=== PATIENT | female | born 1960 | race Caucasian/White ===

== ENCOUNTER 2016-12-08 09:21 | Inpatient (IN) | payer MEDICARE ==
[~2016-12-08] VITALS: Ht 160 cm; Wt 71.4 kg
[~2016-12-08 09:21] MED LIST: AMLO5TAB4 PO; ASPI-630 PO; ATOR20TA58 PO; CALC1TAB75 PO; CHANTIX; CLON1TAB3 PO; CLOP75TA57 PO; CYCL10TA2 PO; HYDR4TAB45 PO; HYDR8TAB29 PO; ISOS30TA4 PO; KETO5DRO24 LEFTEYE; METF750T2 PO; METO-239 PO; MORP30TA PO; MORP30TA3 PO; MULT1TAB52 PO; NITR0.4T22 PO; NORT50CA PO; PANT40TA5 PO; Polyethylene Glycol 3350 PO; RANI150T6 PO; SIMV40TA3 PO
[2016-12-08] MEDS ORDERED: IV NORMAL SALINE 1000ML BAG 1,000 ML IV ONE ×3 (10:00→13:45)
[2016-12-08] MEDS ORDERED: ONDANSETRON PF 4 MG/2 ML VIAL. IV ONE (10:00)
[2016-12-08 10:22] LABS: BASO % 0 % (0-3); EOS % 0 % (0-3); HEMATOCRIT 38.7 % (36.0-47.0); LYMPH # 1.4 x10^3/uL (1.0-4.8); LYMPH % 10 % (24-48); MEAN CORPUSCULAR HEMOGLOBIN 32 pg (25-35); MEAN CORPUSCULAR HGB CONC 34 g/dL (31-37); MEAN CORPUSCULAR VOLUME 95 fL (79-100); MONO % 2 % (0-9); NEUT % 88 % (31-73); PLATELET COUNT 420 x10^3/uL (140-400); RED BLOOD COUNT 4.06 x10^6/uL (3.50-5.40); RED CELL DISTRIBUTION WIDTH 16.3 % (11.5-14.5); WHITE BLOOD COUNT 14.5 x10^3/uL (4.0-11.0)
[2016-12-08 10:22] LABS: POTASSIUM ISTAT 3.9 mmol/L (3.5-5.0)
--- NOTE | 2016-12-08 10:33 | PHYS DOC ---
Past Medical History Past Medical History: Angina, CAD, Diabetes-Type II, GERD, High Cholesterol, Hypertension, Hepatitis, HI Additional Past Medical Histor: replasing poly chondritis, Hepitits B Past Surgical History: Appendectomy, Cholecystectomy Additional Past Surgical Histo: RT ARM SURGERY,spinal stimulator placement, back surgery, stent Alcohol Use: None Drug Use: None Adult General Chief Complaint Chief Complaint: CONSTIPATION HPI HPI Patient is a 56 year old female who presents with several weeks of nausea, intermittent vomiting with intermittent abdominal pain. Patient states his symptoms started shortly after she had an upper and lower GI endoscopy. The pain does not relieve with bowel movements, she chronically has constipation that requires mag citrate intermittently. She did take this during this timeframe and this did not resolve her symptoms. She denies any known fevers, is trying to drink any fluids. She's had a cholecystectomy and appendectomy in the past. Patient has relapsing polychondritis and seen at . PCP is Dr. Lopez, whose office recommended pt come to ED for evaluation and CT. Review of Systems Review of Systems Constitutional: Denies fever or chills [] Eyes: Denies change in visual acuity, redness, or eye pain [] HENT: Denies nasal congestion or sore throat [] Respiratory: reports cough denies shortness of breath [] Cardiovascular: Denies chest pain GI: per hpi : Denies dysuria or hematuria [] Musculoskeletal: Denies back pain or joint pain [] Integument: Denies rash or skin lesions [] Neurologic: Denies headache, focal weakness or sensory changes [] Current Medications Current Medications Current Medications Medications (Trade) Dose Ordered Sig/Anthony Start Time Stop Time Status Last Admin Dose Admin Ceftriaxone Sodium 50 ml @ 100 mls/hr 1X ONCE 12/08/16 12:15 12/08/16 12:44 DC 12/08/16 12:30 100 MLS/HR Info (Do NOT chart on this entry -- for MONITORING) 1 each PRN DAILY PRN 12/08/16 10:45 12/10/16 10:44 Iohexol (Omnipaque 300 Mg/ml) 75 ml 1X ONCE 12/08/16 10:45 12/08/16 10:46 DC 12/08/16 10:40 75 ML Magnesium Citrate (Citroma) 296 ml 1X ONCE 12/08/16 12:15 12/08/16 12:16 DC 12/08/16 12:27 296 ML Morphine Sulfate 4 mg PRN Q2HR PRN 12/08/16 12:45 12/09/16 12:44 Ondansetron HCl (Zofran) 4 mg 1X ONCE 12/08/16 10:00 12/08/16 10:01 DC 12/08/16 10:04 4 MG Promethazine HCl 12.5 mg/Sodium Chloride 50.5 ml @ 151.5 mls/ hr 1X ONCE 12/08/16 12:15 12/08/16 12:34 DC 12/08/16 12:28 151.5 MLS/HR Sodium Chloride 1,000 ml @ 1,000 mls/hr 1X ONCE 12/08/16 13:45 12/08/16 14:44 DC 12/08/16 14:20 1,000 MLS/HR Allergies Allergies Allergies Coded Allergies Type Severity Reaction Last Updated Verified No Known Drug Allergies 06/22/13 No Physical Exam Physical Exam Constitutional: Well developed, well nourished, no acute distress, non-toxic appearance. [] HENT: Normocephalic, atraumatic, bilateral external ears normal, oropharynx dry , no oral exudates, nose normal. [] Eyes: PERRLA, EOMI, conjunctiva normal, no discharge. [] Neck: Normal range of motion, no tenderness, supple, no stridor. [] Cardiovascular:Heart rate tachy with regular rhythm, no murmur [] Lungs & Thorax: Bilateral breath sounds clear to auscultation, no wheeze or crackles Abdomen: Bowel sounds normal, soft, slightly distended, no focal tenderness or guarding. Skin: Warm, dry, no erythema, no rash. [] Back: No tenderness, no CVA tenderness. [] Extremities: No tenderness, no cyanosis, no clubbing, ROM intact, no edema. [] Neurologic: Alert and oriented X 3, normal motor function, normal sensory function, no focal deficits noted. [] Psychologic: Affect normal, judgement normal, mood normal. [] Current Patient Data Vital Signs Vital Signs Date Time Temp Pulse Resp B/P (MAP) Pulse Ox O2 Delivery O2 Flow Rate FiO2 12/08/16 13:39 117 20 154/83 (106) 96 Room Air 12/08/16 09:36 97.7 97.7 Lab Values Laboratory Tests Test 12/08/16 10:01 12/08/16 10:18 12/08/16 12:25 12/08/16 14:10 White Blood Count 14.5 x10^3/uL (4.0-11.0) H Red Blood Count 4.06 x10^6/uL (3.50-5.40) Hemoglobin 13.0 g/dL (12.0-15.5) Hematocrit 38.7 % (36.0-47.0) Mean Corpuscular Volume 95 fL (79-100) Mean Corpuscular Hemoglobin 32 pg (25-35) Mean Corpuscular Hemoglobin Concent 34 g/dL (31-37) Red Cell Distribution Width 16.3 % (11.5-14.5) H Platelet Count 420 x10^3/uL (140-400) H Neutrophils (%) (Auto) 88 % (31-73) H Lymphocytes (%) (Auto) 10 % (24-48) L Monocytes (%) (Auto) 2 % (0-9) Eosinophils (%) (Auto) 0 % (0-3) Basophils (%) (Auto) 0 % (0-3) Neutrophils # (Auto) 12.8 x10^3uL (1.8-7.7) H Lymphocytes # (Auto) 1.4 x10^3/uL (1.0-4.8) Monocytes # (Auto) 0.3 x10^3/uL (0.0-1.1) Eosinophils # (Auto) 0.0 x10^3/uL (0.0-0.7) Basophils # (Auto) 0.0 x10^3/uL (0.0-0.2) Segmented Neutrophils % 87 % (35-66) H Band Neutrophils % 2 % (0-9) Lymphocytes % 10 % (24-48) L Monocytes % 1 % (0-10) Platelet Estimate Adequate (ADEQUATE) Lactic Acid Level 2.5 mmol/L (0.4-2.0) H 1.5 mmol/L (0.4-2.0) Total Bilirubin 0.3 mg/dL (0.2-1.0) Direct Bilirubin 0.1 mg/dL (0.0-0.2) Aspartate Amino Transferase (AST) 12 U/L (15-37) L Alanine Aminotransferase (ALT) 16 U/L (14-59) Alkaline Phosphatase 102 U/L (46-116) Total Protein 7.1 g/dL (6.4-8.2) Albumin 3.2 g/dL (3.4-5.0) L Lipase 79 U/L (73-393) POC Hemoglobin 13.6 g/dL (12-15) POC Hematocrit 40 % (36-40) POC Sodium 131 mmol/L (135-145) L POC Potassium 3.9 mmol/L (3.5-5.0) POC Chloride 97 mmol/L (98-110) L POC Total CO2 23 mmol/L (23-32) Anion Gap 15 mmol/L (6-14) H POC Blood Urea Nitrogen 8 mg/dL (8-26) POC Creatinine 0.8 mg/dL (0.5-1.4) Glucose Level 141 mg/dL (70-99) H POC Ionized Calcium (Mellissa) 1.16 mmol/L (1.13-1.32) Urine Collection Type Unknown Urine Color Yellow Urine Clarity Clear Urine pH 6.5 Urine Specific [place] 1.020 Urine Protein Negative mg/dL (NEG-TRACE) Urine Glucose (UA) Negative mg/dL (NEG) Urine Ketones (Stick) Negative mg/dL (NEG) Urine Blood Negative (NEG) Urine Nitrite Negative (NEG) Urine Bilirubin Negative (NEG) Urine Urobilinogen Dipstick 0.2 mg/dL (0.2 mg/dL) Urine Leukocyte Esterase Negative (NEG) Urine RBC Occ /HPF (0-2) Urine WBC 0 /HPF (0-4) Urine Squamous Epithelial Cells Occ /LPF Urine Bacteria 0 /HPF (0-FEW) Laboratory Tests 12/08/16 10:01 Laboratory Tests 12/08/16 10:18 EKG EKG [] Radiology/Procedures Radiology/Procedures CT abd pelvis: Impression: 1. Moderate amount of stool identified throughout the colon. Correlate for constipation. 2. Cholecystectomy changes. CXR: IMPRESSION: No acute cardiopulmonary findings. Course & Med Decision Making Course & Med Decision Making Pertinent Labs and Imaging studies reviewed. (See chart for details) pt given IV fluids, zofran. Labs/ua/lactic acid ordered as pt is tachy. HR improved, leukocytosis with shift and lactic acidosis. Pt received IV rocephin for possible UTI vs intrabdominal , urine pending. Discussed with Dr. Lopez, accepted. Consult placed for GI. IV fluids continued. Repeat lactic ordered. Dragon Disclaimer Dragon Disclaimer This electronic medical record was generated, in whole or in part, using a voice recognition dictation system. Departure Departure Impression: Primary Impression: Abdominal pain Additional Impression: Lactic acid acidosis Disposition: ADMITTED INPATIENT Admitting Physician: Brynn Lopez Referrals: BRYNN LOPEZ MD (PCP) Problem Qualifiers JAKOB VICTORIA MD Dec 08, 2016 10:33
[2016-12-08 10:40] LABS: ALBUMIN 3.2 g/dL (3.4-5.0); DIRECT BILIRUBIN 0.1 mg/dL (0.0-0.2); TOTAL BILIRUBIN 0.3 mg/dL (0.2-1.0); TOTAL PROTEIN 7.1 g/dL (6.4-8.2)
[2016-12-08] MEDS ORDERED: CONTRAST GIVEN MC PRN (10:45)
[2016-12-08] MEDS ORDERED: IOHEXOL 300 MG/ML 75 ML VIAL IV ONE (10:45)
--- NOTE | 2016-12-08 10:50 | RAD ---
EXAM: CHEST 1 VIEW History: Cough, constipation COMPARISON: 06/24/2016 TECHNIQUE: Single portable radiograph of the chest FINDINGS: The cardiac silhouette is unremarkable. Small calcified granuloma identified in the right lower lobe with lungs grossly similar to prior exam. The costophrenic sulci are clear and well demarcated. The osseous structures and soft tissues are unremarkable. IMPRESSION: No acute cardiopulmonary findings.
--- NOTE | 2016-12-08 11:11 | RAD ---
Examination: CT of the abdomen pelvis with IV contrast History: History of abdominal pain, nausea, vomiting after endoscopy Comparison: 06/22/2013 Technique: Axial CT images of the abdomen pelvis were performed with IV contrast. Coronal and sagittal reformats are performed. PQRS Compliance Statement: One or more of the following individualized dose reduction techniques were utilized for this examination: 1. Automated exposure control 2. Adjustment of the mA and/or kV according to patient size 3. Use of iterative reconstruction technique Findings: Minimal bibasal lung atelectasis. No evidence of free air identified in the abdomen. The visualized liver, spleen, adrenals grossly appears unremarkable. The stomach is mildly distended. The small bowel is nondilated. Moderate fatty atrophic changes of the pancreas increased since prior exam. Moderate amount of feces and gas are noted throughout the colon. Urinary bladder is mildly distended. No significant free fluid identified in the pelvis. The visualized uterus, adnexa grossly appears unremarkable. The bilateral kidneys enhance symmetrically. Severe aortic atherosclerosis, Moderate degenerative changes lumbar spine. Retroaortic left renal vein. Impression: 1. Moderate amount of stool identified throughout the colon. Correlate for constipation. 2. Cholecystectomy changes.
[2016-12-08 11:49] LABS: PLT ESTIMATE ADEQUATE (ADEQUATE)
[2016-12-08] MEDS ORDERED: MAGNESIUM CITRATE 296 ML SOLUTION. PO ONE (12:15)
[2016-12-08] MEDS ORDERED: PROMETHAZINE 12.5 MG in IV NORMAL SALINE 50ML 50 ML IV ONE (12:15)
[2016-12-08] MEDS ORDERED: MORPHINE SULFATE 4 MG/ML DISP.SYRIN. IV ONE (12:15)
[2016-12-08 12:37] LABS: BILIRUBIN,URINE NEGATIVE (NEG); GLUCOSE,URINE NEGATIVE (NEG); NITRITE,URINE NEGATIVE (NEG); PH,URINE 6.5; PROTEIN,URINE NEGATIVE (NEG-TRACE); UROBILINOGEN,URINE 0.2 mg/dL (0.2 mg/dL)
[2016-12-08 13:03] LABS: BACTERIA,URINE 0 /HPF (0-FEW); RBC,URINE OCC /HPF (0-2); SQUAMOUS EPITHELIAL CELL,UR OCC /LPF; WBC,URINE 0 /HPF (0-4)
--- NOTE | 2016-12-08 15:35 | PDOC2 ---
GI CONSULT Reason For Consult: Abd pain HPI: HPI: 56 y/o female with PMH as below including chronic GI issues including constipation and GERD. Has been bothered w/ worsening constipation, nausea, and decreased appetite x 5 weeks w/ estimated 13 pound weight loss. She underwent EGD and colonoscopy at on 11/06/16; she says these were performed due to her h/o relapsing polychondritis. She reports findings including hemorrhoids and a normal esophageal biopsy. It was after this that symptoms began. She has been on methotrexate for relapsing polychondritis; this was stopped for a brief time as a trial but nausea and appetite did not improve. For GERD, she was previously on pantoprazole but recently changed to ranitidine 300mg QD which she feels controls nocturnal reflux and chest pain (her typical GERD symptoms) better than PPI. Diet has mostly consisted of crackers and Boost. Since colonoscopy, she has had only 2-3 stools despite Miralax QD + Mag Citrate x 1. She does have a h/o constipation attributed in part to use of pain medications. She has chronic "head to toe" pain since an accident in 2001 and take morphine ER TID + Tylenol PRN. No NSAIDs although does take ASA and Plavix. H/o Hep B, cholecystectomy, and appendectomy. No hematochezia or melena. Significant labs: WBC 14.5, plt 420, Na 131, lactic acid 2.5, normal LFTs and lipase. CT A/P showed a moderate amount of stool. PMH: PMH: GERD, Hepatitis B, constipation, hemorrhoids, chronic pain, CAD s/p 4 stents and previous NM, DM, HTN, HLD, restless leg syndrome, relapsing polychondritis, spinal stimulator. cholecystectomy, appendectomy, right rotator cuff repair FH: Family History: No pertinent hx Social History: Smoke: <1 pack per day ALCOHOL: none Drugs: Marijuana ROS: GEN: Denies fevers, chills, sweats HEENT: Denies blurred vision, sore throat CV: Denies chest pain RESP: Denies shortness of air, cough GI: Per HPI : Denies hematuria, dysuria ENDO: +weight loss NEURO: Denies confusion, dizziness MSK: +chronic "head to toe" pain SKIN: Denies jaundice, pruritus Vitals: Vitals: Vital Signs Date Time Temp Pulse Resp B/P (MAP) Pulse Ox O2 Delivery O2 Flow Rate FiO2 12/08/16 13:39 117 20 154/83 (106) 96 Room Air 12/08/16 09:36 97.7 97.7 Labs: Labs: Laboratory Tests Test 12/08/16 10:01 12/08/16 10:18 12/08/16 12:25 12/08/16 14:10 White Blood Count 14.5 x10^3/uL (4.0-11.0) Red Blood Count 4.06 x10^6/uL (3.50-5.40) Hemoglobin 13.0 g/dL (12.0-15.5) Hematocrit 38.7 % (36.0-47.0) Mean Corpuscular Volume 95 fL (79-100) Mean Corpuscular Hemoglobin 32 pg (25-35) Mean Corpuscular Hemoglobin Concent 34 g/dL (31-37) Red Cell Distribution Width 16.3 % (11.5-14.5) Platelet Count 420 x10^3/uL (140-400) Neutrophils (%) (Auto) 88 % (31-73) Lymphocytes (%) (Auto) 10 % (24-48) Monocytes (%) (Auto) 2 % (0-9) Eosinophils (%) (Auto) 0 % (0-3) Basophils (%) (Auto) 0 % (0-3) Neutrophils # (Auto) 12.8 x10^3uL (1.8-7.7) Lymphocytes # (Auto) 1.4 x10^3/uL (1.0-4.8) Monocytes # (Auto) 0.3 x10^3/uL (0.0-1.1) Eosinophils # (Auto) 0.0 x10^3/uL (0.0-0.7) Basophils # (Auto) 0.0 x10^3/uL (0.0-0.2) Segmented Neutrophils % 87 % (35-66) Band Neutrophils % 2 % (0-9) Lymphocytes % 10 % (24-48) Monocytes % 1 % (0-10) Platelet Estimate Adequate (ADEQUATE) Lactic Acid Level 2.5 mmol/L (0.4-2.0) 1.5 mmol/L (0.4-2.0) Total Bilirubin 0.3 mg/dL (0.2-1.0) Direct Bilirubin 0.1 mg/dL (0.0-0.2) Aspartate Amino Transf (AST/SGOT) 12 U/L (15-37) Alanine Aminotransferase (ALT/SGPT) 16 U/L (14-59) Alkaline Phosphatase 102 U/L (46-116) Total Protein 7.1 g/dL (6.4-8.2) Albumin 3.2 g/dL (3.4-5.0) Lipase 79 U/L (73-393) Bedside Hemoglobin 13.6 g/dL (12-15) Bedside Hematocrit 40 % (36-40) Bedside Sodium 131 mmol/L (135-145) Bedside Potassium 3.9 mmol/L (3.5-5.0) Bedside Chloride 97 mmol/L (98-110) Bedside Total CO2 23 mmol/L (23-32) Anion Gap 15 mmol/L (6-14) Bedside Blood Urea Nitrogen 8 mg/dL (8-26) Bedside Creatinine 0.8 mg/dL (0.5-1.4) Glucose Level 141 mg/dL (70-99) Bedside Ionized Calcium (Mellissa) 1.16 mmol/L (1.13-1.32) Urine Collection Type Unknown Urine Color Yellow Urine Clarity Clear Urine pH 6.5 Urine Specific [place] 1.020 Urine Protein Negative mg/dL (NEG-TRACE) Urine Glucose (UA) Negative mg/dL (NEG) Urine Ketones (Stick) Negative mg/dL (NEG) Urine Blood Negative (NEG) Urine Nitrite Negative (NEG) Urine Bilirubin Negative (NEG) Urine Urobilinogen Dipstick 0.2 mg/dL (0.2 mg/dL) Urine Leukocyte Esterase Negative (NEG) Urine RBC Occ /HPF (0-2) Urine WBC 0 /HPF (0-4) Urine Squamous Epithelial Cells Occ /LPF Urine Bacteria 0 /HPF (0-FEW) Allergies: Coded Allergies: No Known Drug Allergies (Unverified , 06/22/13) Medications: Current Medications Medications (Trade) Dose Ordered Sig/Anthony Route PRN Reason Start Time Stop Time Status Last Admin Dose Admin Sodium Chloride 1,000 ml @ 1,000 mls/hr 1X ONCE IV 12/08/16 10:00 12/08/16 10:59 DC 12/08/16 10:04 Ondansetron HCl (Zofran) 4 mg 1X ONCE IV 12/08/16 10:00 12/08/16 10:01 DC 12/08/16 10:04 Iohexol (Omnipaque 300 Mg/ml) 75 ml 1X ONCE IV 12/08/16 10:45 12/08/16 10:46 DC 12/08/16 10:40 Sodium Chloride 1,000 ml @ 1,000 mls/hr 1X ONCE IV 12/08/16 11:45 12/08/16 12:44 DC 12/08/16 12:23 Ceftriaxone Sodium 50 ml @ 100 mls/hr 1X ONCE IV 12/08/16 12:15 12/08/16 12:44 DC 12/08/16 12:30 Morphine Sulfate 4 mg 1X ONCE IV 12/08/16 12:15 12/08/16 12:16 DC 12/08/16 12:33 Promethazine HCl 12.5 mg/Sodium Chloride 50.5 ml @ 151.5 mls/ hr 1X ONCE IV 12/08/16 12:15 12/08/16 12:34 DC 12/08/16 12:28 Magnesium Citrate (Citroma) 296 ml 1X ONCE PO 12/08/16 12:15 12/08/16 12:16 DC 12/08/16 12:27 Sodium Chloride 1,000 ml @ 1,000 mls/hr 1X ONCE IV 12/08/16 13:45 12/08/16 14:44 DC 12/08/16 14:20 Imaging: Imaging: CXR 12/08/16 IMPRESSION: No acute cardiopulmonary findings. CT A/P 12/08/16 Findings: Minimal bibasal lung atelectasis. No evidence of free air identified in the abdomen. The visualized liver, spleen, adrenals grossly appears unremarkable. The stomach is mildly distended. The small bowel is nondilated. Moderate fatty atrophic changes of the pancreas increased since prior exam. Moderate amount of feces and gas are noted throughout the colon. Urinary bladder is mildly distended. No significant free fluid identified in the pelvis. The visualized uterus, adnexa grossly appears unremarkable. The bilateral kidneys enhance symmetrically. Severe aortic atherosclerosis, Moderate degenerative changes lumbar spine. Retroaortic left renal vein. Impression: 1. Moderate amount of stool identified throughout the colon. Correlate for constipation. 2. Cholecystectomy changes. PE: GEN: NAD HEENT: Atraumatic, PERRL LUNGS: CTAB anteriorly HEART: tachycardic ABD: vaguely tender throughout (she continuously palpates own abdomen), soft, BS + EXTREMITY: No edema SKIN: No rashes, no jaundice NEURO/PSYCH: A & O 3 A/P: A/P: Nausea, decreased appetite, weight loss -s/p cholecystectomy -h/o chronic pain on morphine, relapsing polychondritis on methotrexate, and DM GERD -recently changed from PPI to H2 jose -EGD last month at , reports "normal biopsy" Chronic constipation -long history, worse recently -takes Miralax QD, Mag Citrate PRN -reports normal colonoscopy except for hemorrhoids last month at -CT w/ moderate amount of stool, lactic acid 2.5 Hepatitis B CAD on Plavix and ASA Hyponatremia -- Chronic GI problems. Would consider resuming PPI in place of H2 jose w/ nausea and h/o GERD. ?GES w/ DM (although on chronic pain meds...) Narcotic-induced constipation; try Relistor and Amitiza. TERESA WILL Dec 08, 2016 15:35
[2016-12-08] MEDS ORDERED: ATOR40TA59 PO (15:36)
[2016-12-08] MEDS ORDERED: OMEG100021 PO (15:43)
[2016-12-08] MEDS ORDERED: FERR-26 PO (15:44)
[2016-12-08] MEDS ORDERED: RANI300C PO (15:45)
[2016-12-08] MEDS ORDERED: METH2.5T PO (15:46)
[2016-12-08] MEDS ORDERED: ONDA8TAB9 PO (15:47)
[2016-12-08] MEDS ORDERED: PRED5DRO16 EACHEYE (15:47)
[2016-12-08] MEDS ORDERED: FOLI1TAB16 PO (15:47)
[2016-12-08] MEDS ORDERED: PRED-220 PO (15:48)
[2016-12-08] MEDS: CLOPIDOGREL BISULFATE 75 MG TABLET PO SCH ×2 (17:00→20:16)
[2016-12-08] MEDS: DEXAMETHASONE 0.1% OPHTH SOLUTION 5ML BOTTLE. OU SCH ×3 (17:00→21:28)
[2016-12-08] MEDS: MORPHINE ER 30 MG TABLET.ER PO SCH ×3 (17:00→20:25)
[2016-12-08] MEDS ORDERED: METHYLNALTREXONE 12 MG/0.6 ML VIAL. SQ ONE (17:00)
[2016-12-08 17:51] VITALS: BP 133/90
[2016-12-08 19:30] VITALS: BP 128/92
[2016-12-08] MEDS: LUBIPROSTONE 8 MCG CAPSULE PO SCH (20:16)
[2016-12-08] MEDS: METOPROLOL SUCC 24HR ER 25 MG TAB.ER.24H. PO SCH (20:16)
[2016-12-08] MEDS: PANTOPRAZOLE 40 MG TABLET.DR. PO SCH (20:17)
[2016-12-08] MEDS: KETOROLAC TROMETHAMINE 0.5% OPHTH SOLUTION 3ML BOTTLE. OU SCH ×2 (20:17→21:28)
[2016-12-08] MEDS ORDERED: FAMOTIDINE 20 MG TABLET. PO SCH (21:00)
[2016-12-08] MEDS ORDERED: FOLIC ACID 1 MG TABLET. PO SCH (21:00)
[2016-12-08] MEDS ORDERED: NORTRIPTYLINE 25 MG CAPSULE PO SCH (21:00)
[2016-12-08] MEDS ORDERED: clonazePAM 1 MG TABLET PO SCH (21:00)
[2016-12-08] MEDS ORDERED: CYCLOBENZAPRINE 10 MG TABLET. PO SCH (21:00)
[2016-12-08] MEDS ORDERED: ATORVASTATIN CALCIUM 40 MG TABLET. PO SCH (21:00)
[2016-12-08] MEDS ORDERED: ACETAMINOPHEN 325 MG TABLET. PO PRN (21:45)
[2016-12-08] MEDS: MORPHINE SULFATE 4 MG/ML DISP.SYRIN. IV PRN (22:21)
[2016-12-08 22:40] VITALS: BP 130/70
[2016-12-09 02:38] VITALS: BP 116/71
[2016-12-09] MEDS: DEXAMETHASONE 0.1% OPHTH SOLUTION 5ML BOTTLE. OU SCH ×2 (05:41→10:00)
[2016-12-09] MEDS: KETOROLAC TROMETHAMINE 0.5% OPHTH SOLUTION 3ML BOTTLE. OU SCH ×2 (05:54→10:00)
[2016-12-09] MEDS: MORPHINE SULFATE 4 MG/ML DISP.SYRIN. IV PRN (06:15)
[2016-12-09 07:00] VITALS: BP 100/68
[2016-12-09] MEDS ORDERED: FERROUS SULFATE 325 MG TABLET. PO SCH (08:00)
--- NOTE | 2016-12-09 08:08 | PDOC ---
PROGRESS NOTES Subjective Subjective Patient reports abdominal pain much improved after multiple bowel movements since admission. Requesting regular tray for breakfast. Objective Objective Vital Signs Date Time Temp Pulse Resp B/P (MAP) Pulse Ox O2 Delivery O2 Flow Rate FiO2 12/09/16 07:00 98.4 89 16 100/68 (79) 97 Room Air 98.4 Physical Exam Abdomen: Normal bowel sounds, Soft, No tenderness Heart: Regular rate Extremities: No edema General: Alert, Oriented X3, No acute distress Lungs: Other (BS decreased throughout but CTA) Plan Plan of Care 1. Abdominal pain - due to constipation. Resolved after tx with Relistor x1. CT without acute findings. GI recommends home on Amitiza, patient in agreement. 2. DM2 - controlled, continue home meds. 3. chronic pain - stable, patient sees a Pain Clinic for her ongoing meds. 4. hx CAD - stable. 5. polychondritis - presently stable, she is to follow up with her specialist at as advised. Comment Review of Relevant I have reviewed the following items lakshmi (where applicable) has been applied. Labs Laboratory Tests Test 12/08/16 10:01 12/08/16 10:18 12/08/16 12:25 12/08/16 14:10 White Blood Count 14.5 x10^3/uL (4.0-11.0) Red Blood Count 4.06 x10^6/uL (3.50-5.40) Hemoglobin 13.0 g/dL (12.0-15.5) Hematocrit 38.7 % (36.0-47.0) Mean Corpuscular Volume 95 fL (79-100) Mean Corpuscular Hemoglobin 32 pg (25-35) Mean Corpuscular Hemoglobin Concent 34 g/dL (31-37) Red Cell Distribution Width 16.3 % (11.5-14.5) Platelet Count 420 x10^3/uL (140-400) Neutrophils (%) (Auto) 88 % (31-73) Lymphocytes (%) (Auto) 10 % (24-48) Monocytes (%) (Auto) 2 % (0-9) Eosinophils (%) (Auto) 0 % (0-3) Basophils (%) (Auto) 0 % (0-3) Neutrophils # (Auto) 12.8 x10^3uL (1.8-7.7) Lymphocytes # (Auto) 1.4 x10^3/uL (1.0-4.8) Monocytes # (Auto) 0.3 x10^3/uL (0.0-1.1) Eosinophils # (Auto) 0.0 x10^3/uL (0.0-0.7) Basophils # (Auto) 0.0 x10^3/uL (0.0-0.2) Segmented Neutrophils % 87 % (35-66) Band Neutrophils % 2 % (0-9) Lymphocytes % 10 % (24-48) Monocytes % 1 % (0-10) Platelet Estimate Adequate (ADEQUATE) Lactic Acid Level 2.5 mmol/L (0.4-2.0) 1.5 mmol/L (0.4-2.0) Total Bilirubin 0.3 mg/dL (0.2-1.0) Direct Bilirubin 0.1 mg/dL (0.0-0.2) Aspartate Amino Transf (AST/SGOT) 12 U/L (15-37) Alanine Aminotransferase (ALT/SGPT) 16 U/L (14-59) Alkaline Phosphatase 102 U/L (46-116) Total Protein 7.1 g/dL (6.4-8.2) Albumin 3.2 g/dL (3.4-5.0) Lipase 79 U/L (73-393) Bedside Hemoglobin 13.6 g/dL (12-15) Bedside Hematocrit 40 % (36-40) Bedside Sodium 131 mmol/L (135-145) Bedside Potassium 3.9 mmol/L (3.5-5.0) Bedside Chloride 97 mmol/L (98-110) Bedside Total CO2 23 mmol/L (23-32) Anion Gap 15 mmol/L (6-14) Bedside Blood Urea Nitrogen 8 mg/dL (8-26) Bedside Creatinine 0.8 mg/dL (0.5-1.4) Glucose Level 141 mg/dL (70-99) Bedside Ionized Calcium (Mellissa) 1.16 mmol/L (1.13-1.32) Urine Collection Type Unknown Urine Color Yellow Urine Clarity Clear Urine pH 6.5 Urine Specific [place] 1.020 Urine Protein Negative mg/dL (NEG-TRACE) Urine Glucose (UA) Negative mg/dL (NEG) Urine Ketones (Stick) Negative mg/dL (NEG) Urine Blood Negative (NEG) Urine Nitrite Negative (NEG) Urine Bilirubin Negative (NEG) Urine Urobilinogen Dipstick 0.2 mg/dL (0.2 mg/dL) Urine Leukocyte Esterase Negative (NEG) Urine RBC Occ /HPF (0-2) Urine WBC 0 /HPF (0-4) Urine Squamous Epithelial Cells Occ /LPF Urine Bacteria 0 /HPF (0-FEW) Test 12/08/16 20:53 Glucose (Fingerstick) 145 mg/dL (70-99) Laboratory Tests Test 12/08/16 10:01 12/08/16 10:18 12/08/16 12:25 12/08/16 14:10 White Blood Count 14.5 x10^3/uL (4.0-11.0) Red Blood Count 4.06 x10^6/uL (3.50-5.40) Hemoglobin 13.0 g/dL (12.0-15.5) Hematocrit 38.7 % (36.0-47.0) Mean Corpuscular Volume 95 fL (79-100) Mean Corpuscular Hemoglobin 32 pg (25-35) Mean Corpuscular Hemoglobin Concent 34 g/dL (31-37) Red Cell Distribution Width 16.3 % (11.5-14.5) Platelet Count 420 x10^3/uL (140-400) Neutrophils (%) (Auto) 88 % (31-73) Lymphocytes (%) (Auto) 10 % (24-48) Monocytes (%) (Auto) 2 % (0-9) Eosinophils (%) (Auto) 0 % (0-3) Basophils (%) (Auto) 0 % (0-3) Neutrophils # (Auto) 12.8 x10^3uL (1.8-7.7) Lymphocytes # (Auto) 1.4 x10^3/uL (1.0-4.8) Monocytes # (Auto) 0.3 x10^3/uL (0.0-1.1) Eosinophils # (Auto) 0.0 x10^3/uL (0.0-0.7) Basophils # (Auto) 0.0 x10^3/uL (0.0-0.2) Segmented Neutrophils % 87 % (35-66) Band Neutrophils % 2 % (0-9) Lymphocytes % 10 % (24-48) Monocytes % 1 % (0-10) Platelet Estimate Adequate (ADEQUATE) Lactic Acid Level 2.5 mmol/L (0.4-2.0) 1.5 mmol/L (0.4-2.0) Total Bilirubin 0.3 mg/dL (0.2-1.0) Direct Bilirubin 0.1 mg/dL (0.0-0.2) Aspartate Amino Transf (AST/SGOT) 12 U/L (15-37) Alanine Aminotransferase (ALT/SGPT) 16 U/L (14-59) Alkaline Phosphatase 102 U/L (46-116) Total Protein 7.1 g/dL (6.4-8.2) Albumin 3.2 g/dL (3.4-5.0) Lipase 79 U/L (73-393) Bedside Hemoglobin 13.6 g/dL (12-15) Bedside Hematocrit 40 % (36-40) Bedside Sodium 131 mmol/L (135-145) Bedside Potassium 3.9 mmol/L (3.5-5.0) Bedside Chloride 97 mmol/L (98-110) Bedside Total CO2 23 mmol/L (23-32) Anion Gap 15 mmol/L (6-14) Bedside Blood Urea Nitrogen 8 mg/dL (8-26) Bedside Creatinine 0.8 mg/dL (0.5-1.4) Glucose Level 141 mg/dL (70-99) Bedside Ionized Calcium (Mellissa) 1.16 mmol/L (1.13-1.32) Urine Collection Type Unknown Urine Color Yellow Urine Clarity Clear Urine pH 6.5 Urine Specific [place] 1.020 Urine Protein Negative mg/dL (NEG-TRACE) Urine Glucose (UA) Negative mg/dL (NEG) Urine Ketones (Stick) Negative mg/dL (NEG) Urine Blood Negative (NEG) Urine Nitrite Negative (NEG) Urine Bilirubin Negative (NEG) Urine Urobilinogen Dipstick 0.2 mg/dL (0.2 mg/dL) Urine Leukocyte Esterase Negative (NEG) Urine RBC Occ /HPF (0-2) Urine WBC 0 /HPF (0-4) Urine Squamous Epithelial Cells Occ /LPF Urine Bacteria 0 /HPF (0-FEW) Test 12/08/16 20:53 Glucose (Fingerstick) 145 mg/dL (70-99) Medications Current Medications Sodium Chloride 1,000 ml @ 1,000 mls/hr 1X ONCE IV Last administered on 10:04; Start 12/08/16 at 10:00; Stop 12/08/16 at 10:59; Status DC Ondansetron HCl (Zofran) 4 mg 1X ONCE IV Last administered on 12/08/16 10:04 ; Start 12/08/16 at 10:00; Stop 12/08/16 at 10:01; Status DC Iohexol (Omnipaque 300 Mg/ml) 75 ml 1X ONCE IV Last administered on 12/08/16 10:40; Start 12/08/16 at 10:45; Stop 12/08/16 at 10:46; Status DC Info (Do NOT chart on this entry -- for MONITORING) 1 each PRN DAILY PRN MC SEE COMMENTS; Start 12/08/16 at 10:45; Stop 12/10/16 at 10:44 Sodium Chloride 1,000 ml @ 1,000 mls/hr 1X ONCE IV Last administered on 12:23; Start 12/08/16 at 11:45; Stop 12/08/16 at 12:44; Status DC Ceftriaxone Sodium 50 ml @ 100 mls/hr 1X ONCE IV Last administered on 12:30; Start 12/08/16 at 12:15; Stop 12/08/16 at 12:44; Status DC Morphine Sulfate 4 mg 1X ONCE IV Last administered on 12/08/16 12:33; Start 12/08/16 at 12:15; Stop 12/08/16 at 12:16; Status DC Promethazine HCl 12.5 mg/Sodium Chloride 50.5 ml @ 151.5 mls/ hr 1X ONCE IV Last administered on 12/08/16 12:28; Start 12/08/16 at 12:15; Stop 12/08/16 at 12:34; Status DC Magnesium Citrate (Citroma) 296 ml 1X ONCE PO Last administered on 12/08/16 12:27; Start 12/08/16 at 12:15; Stop 12/08/16 at 12:16; Status DC Morphine Sulfate 4 mg PRN Q2HR PRN IV PAIN Last administered on 12/09/16 06:15 ; Start 12/08/16 at 12:45; Stop 12/09/16 at 12:44 Sodium Chloride 1,000 ml @ 1,000 mls/hr 1X ONCE IV Last administered on 14:20; Start 12/08/16 at 13:45; Stop 12/08/16 at 14:44; Status DC Atorvastatin Calcium (Lipitor) 40 mg HS PO Last administered on 12/08/16 20:17 ; Start 12/08/16 at 21:00 Clonazepam (KlonoPIN) 1 mg DAILY PO ; Start 12/09/16 at 09:00 Clonazepam (KlonoPIN) 2 mg QHS PO Last administered on 12/08/16 20:14; Start 12/08/16 at 21:00 Clopidogrel Bisulfate (Plavix) 75 mg DAILY PO ; Start 12/08/16 at 17:00 Cyclobenzaprine HCl (Flexeril) 20 mg QHS PO Last administered on 12/08/16 20: 15; Start 12/08/16 at 21:00 Cyclobenzaprine HCl (Flexeril) 10 mg DAILY PO ; Start 12/09/16 at 09:00 Ferrous Sulfate (Feosol) 325 mg DAILYWBKFT PO ; Start 12/09/16 at 08:00 Folic Acid (Folic Acid) 1 mg HS PO Last administered on 12/08/16 20:17; Start 12/08/16 at 21:00 Isosorbide Mononitrate (Imdur) 30 mg DAILY PO ; Start 12/09/16 at 09:00 Ketorolac Tromethamine (Acular) 1 drop 6XDAY OU Last administered on 12/09/16 05:54; Start 12/08/16 at 19:00 Metoprolol Succinate (Toprol Xl) 25 mg BID PO Last administered on 12/08/16 20 :16; Start 12/08/16 at 21:00 Morphine Sulfate (Ms Contin) 30 mg TID PO Last administered on 12/08/16 20:25 ; Start 12/08/16 at 17:00 Prednisone (Prednisone) 10 mg DAILY PO ; Start 12/09/16 at 09:00 Metformin HCl (Glucophage) 250 mg TIDWMEALS PO ; Start 12/10/16 at 17:00 Multivitamins (Thera M Plus) 1 tab DAILY PO ; Start 12/09/16 at 09:00 Nortriptyline HCl (Pamelor) 50 mg QHS PO Last administered on 12/08/16 20:14; Start 12/08/16 at 21:00 Dexamethasone (Maxidex) 1 drop Q4HRS W/A OU ; Start 12/08/16 at 17:00 Famotidine (Pepcid) 40 mg QHS PO ; Start 12/08/16 at 21:00; Stop 12/08/16 at 21: 00; Status DC Methylnaltrexone Brainard (Relistor) 12 mg 1X ONCE SQ Last administered on 12/08 20:26; Start 12/08/16 at 17:00; Stop 12/08/16 at 17:01; Status DC Lubiprostone (Amitiza) 8 mcg BIDWMEALS PO Last administered on 12/08/16 20:16 ; Start 12/08/16 at 17:00 Pantoprazole Sodium (Protonix) 40 mg DAILYAC PO Last administered on 12/08/16 20:17; Start 12/08/16 at 17:30 Acetaminophen (Tylenol) 650 mg PRN Q6HRS PRN PO HEADACHE Last administered on 21:47; Start 12/08/16 at 21:45 Active Scripts Active Isosorbide Mononitrate Er (Isosorbide Mononitrate) 30 Mg Tab.er.24h 30 Mg PO DAILY 30 Days Reported Prednisone 10 Mg Tablet 10 Mg PO DAILY Prednisolone Acetate 5 Ml Drops.susp 1 Drop EACHEYE QID Zofran (Ondansetron Hcl) 8 Mg Tablet 1 Tab PO Q8HRS PRN Folic Acid 1 Mg Tablet 1 Tab PO HS Methotrexate (Methotrexate Sodium) 2.5 Mg Tablet 6 Tab PO WEEKLY Ranitidine Hcl 300 Mg Capsule 300 Mg PO BID Ferrous Sulfate 325 Mg Tablet 1 Tab PO DAILY Fish Oil 1,000 mg Softgel ([place]-3/Dha/Epa/Fish Oil) 1,000 Mg Capsule 1,000 Mg PO DAILY Atorvastatin Calcium 40 Mg Tablet 40 Mg PO HS Multivitamins (Multivitamin) 1 Each Tablet 1 Tab PO DAILY Morphine Sulfate Er (Morphine Sulfate) 30 Mg Tablet.er 30 Mg PO TID Ketorolac Tromethamine 5 Ml Drops 1 Drp LEFTEYE 6XDAY Nortriptyline Hcl 50 Mg Capsule 50 Mg PO HS Cyclobenzaprine Hcl 10 Mg Tablet 2 Tab PO QHS Clonazepam 1 Mg Tablet 2 Tab PO QHS Cyclobenzaprine Hcl 10 Mg Tablet 10 Mg PO DAILY Metformin Hcl Er (Metformin Hcl) 750 Mg Tab.er.24h 750 Mg PO DAILY Clonazepam 1 Mg Tablet 1 Mg PO DAILY Plavix (Clopidogrel Bisulfate) 75 Mg Tablet 75 Mg PO DAILY Aspirin 81 Mg Tab.chew 81 Mg PO DAILY Metoprolol Succinate ( Xl ) (Metoprolol Succinate) 25 Mg Tab.er.24h 25 Mg PO BID Vitals/I & O Vital Sign - Last 24 Hours 12/08/16 12/08/16 12/08/16 12/08/16 09:30 09:36 10:00 12:05 Temp 97.7 97.7 Pulse 99 109 100 96 Resp 18 20 20 22 B/P (MAP) 127/75 (92) 163/90 (114) 147/73 (97) 130/68 (88) Pulse Ox 93 96 92 93 O2 Delivery Room Air Room Air Room Air Room Air 12/08/16 12/08/16 12/08/16 12/08/16 12:33 12:34 12:39 13:09 Pulse 112 104 104 Resp 24 20 18 20 B/P (MAP) 161/76 (104) 145/68 (93) 149/77 (101) Pulse Ox 98 96 95 95 O2 Delivery Room Air Room Air Room Air Room Air 12/08/16 12/08/16 12/08/16 12/08/16 13:39 17:51 18:14 19:30 Temp 98.2 97.9 98.2 97.9 Pulse 117 123 104 Resp 20 18 16 B/P (MAP) 154/83 (106) 133/90 (104) 128/92 (104) Pulse Ox 96 98 94 O2 Delivery Room Air Room Air Room Air Room Air 12/08/16 12/08/16 12/08/16 12/08/16 20:00 20:16 20:25 22:21 Pulse 104 B/P (MAP) 128/92 O2 Delivery Room Air Room Air Room Air 12/08/16 12/08/16 12/09/16 12/09/16 22:40 22:51 00:28 02:38 Temp 97.8 98.9 97.8 98.9 Pulse 95 89 Resp 18 16 B/P (MAP) 130/70 (90) 116/71 (86) Pulse Ox 95 94 O2 Delivery Room Air Room Air Room Air Room Air 12/09/16 12/09/16 06:15 07:00 Temp 98.4 98.4 Pulse 89 Resp 16 B/P (MAP) 100/68 (79) Pulse Ox 97 O2 Delivery Room Air Room Air RIVKA HOFFMAN MD Dec 09, 2016 08:08
[2016-12-09] MEDS ORDERED: LUBI8CAP4 PO (08:14)
[2016-12-09] MEDS ORDERED: MULTIVITAMIN with MINERAL TABLET. PO SCH (09:00)
[2016-12-09] MEDS ORDERED: predniSONE 10 MG TABLET PO SCH (09:00)
[2016-12-09] MEDS ORDERED: clonazePAM 1 MG TABLET PO SCH (09:00)
[2016-12-09] MEDS ORDERED: CYCLOBENZAPRINE 10 MG TABLET. PO SCH (09:00)
[2016-12-09] MEDS ORDERED: ISOSORBIDE MONONITRATE ER 30 MG TAB.ER.24H PO SCH (09:00)
[2016-12-09] MEDS: METOPROLOL SUCC 24HR ER 25 MG TAB.ER.24H. PO SCH (09:13)
[2016-12-09] MEDS: PANTOPRAZOLE 40 MG TABLET.DR. PO SCH (09:14)
[2016-12-09] MEDS: LUBIPROSTONE 8 MCG CAPSULE PO SCH (09:14)
[2016-12-09] MEDS: MORPHINE ER 30 MG TABLET.ER PO SCH (09:14)
[2016-12-09 09:15] VITALS: BP 100/68
[2016-12-09] MEDS ORDERED: predniSONE 10 MG TABLET PO ONE (10:15)
[2016-12-09] MEDS: CLOPIDOGREL BISULFATE 75 MG TABLET PO SCH (10:30)
--- NOTE | 2016-12-09 18:47 | DS ---
DATE OF DISCHARGE: 12/09/2016 CHIEF COMPLAINT: Abdominal pain. HISTORY OF PRESENT ILLNESS: The patient is a 56-year-old female who is on narcotic pain medicine chronically for her chronic musculoskeletal pain. She presented to the Emergency Room complaining of constipation. She reported a several week history of nausea and intermittent vomiting with abdominal pain. She has chronic constipation and takes MiraLax daily. However, this did not seem to be helping enough. Evaluation in the Emergency Room included a CT of the abdomen and pelvis which showed moderate amount of stool throughout and no other acute findings. The patient's lactic acid was mildly elevated. Treatment was started. GI was consulted and she was admitted for further treatment. PAST MEDICAL HISTORY: Coronary artery disease, diabetes mellitus type 2, hypertension, relapsing polychondritis, chronic back pain, chronic anxiety. PAST SURGICAL HISTORY: Drug-eluting stent placement x 2 on 06/16/2016, appendectomy, cholecystectomy, spinal stimulator placement, back surgeries. ALLERGIES: The patient has no known drug allergies. MEDICATIONS: Aspirin 81 mg daily, atorvastatin 40 mg daily, clonazepam 1 mg in the a.m. and 2 tablets at bedtime, Plavix 75 mg daily, Flexeril 10 mg q. 8 p.r.n., iron 325 mg daily, folic acid 1 mg daily, Imdur 30 mg daily, Ketorolac eyedrops, metformin ER 750 mg daily, methotrexate 6 tabs once weekly, Toprol-XL 25 mg b.i.d., morphine ER 30 mg t.i.d., multivitamin daily, nortriptyline 50 mg at bedtime, Zofran p.r.n., prednisolone eyedrops, prednisone 10 mg tablet daily, ranitidine 300 mg b.i.d. FAMILY HISTORY: Noncontributory. SOCIAL HISTORY: The patient is single. She is disabled due to her back pain. She smoked cigarettes. She does not drink alcohol to excess. REVIEW OF SYSTEMS: The patient denies fever or chills. She denies cough or shortness of breath. She has some mild intermittent chest pain, which has not worsened recently and she sees her usual size changer for this. She has chronic constipation and takes MiraLax daily with mag citrate as needed for this. She has heartburn and is presently on ranitidine for this. Her chronic pain is fairly well controlled with her usual medication. She sees a Pain Clinic in [place] for ongoing care. She sees a unmanned aircraft systems roboticist at for treatment of her relapsing polychondritis, which is presently stable on the oral prednisone. PHYSICAL EXAMINATION GENERAL: The patient is alert and oriented x 3, sitting up at the side of bed, in no acute distress. HEENT: PERRL, EOMI, sclerae clear. Oropharynx: Mucous membranes moist. NECK: Supple without lymphadenopathy. CHEST: Breath sounds mildly decreased throughout, but otherwise clear to auscultation. CARDIOVASCULAR: Regular rhythm without murmur. ABDOMEN: Soft, nontender, normoactive bowel sounds present. EXTREMITIES: Without edema. HOSPITAL COURSE: The patient was admitted and seen in consultation by GI Medicine. She was given one dose of Relistor and has had multiple bowel movements since then. She reports her abdominal pain is much improved. She is requesting a regular diet for breakfast today instead of the clear liquids that were ordered. She feels much better and states that she is ready to return home today. GI recommends ongoing treatment with Amitiza and patient will be given a prescription for this. She is to continue her MiraLax daily also. The patient's chronic medical conditions including diabetes, chronic pain, coronary artery disease and polychondritis all appears stable with her usual medications and she is advised to continue these and to follow up with her specialist as advised. FINAL DIAGNOSES: 1. Constipation due to narcotic medication. 2. Diabetes mellitus type 2. 3. Chronic musculoskeletal pain. 4. History of coronary artery disease. 5. Relapsing polychondritis. DISCHARGE MEDICATIONS: These remain same as at admission with the addition of Amitiza 8 mcg p.o. b.i.d. FOLLOWUP: With Dr. Lopez as needed. RIVKA LOPEZ MD DR: YAZAN/roshni JOB#: [id number] / [id number] THORD
[2016-12-10] MEDS ORDERED: metFORMIN 500 MG TABLET PO SCH (17:00)
[2017-03-14] MEDS ORDERED: PROM50TA4 PO (11:14)
== END 2016-12-09 11:30 | disposition home or self-care (01) | DRG 392 ==
LOC: ER 09:21 → 6 SOUTH 12:31
PROVIDERS: ADMIT Family Medicine; ATTEND Family Medicine
DX: K59.03 Drug induced constipation (principal); E87.2 Acidosis; B19.10 Unspecified viral hepatitis B without hepatic coma; E11.9 Type 2 diabetes mellitus without complications; D72.829 Elevated white blood cell count, unspecified; I10 Essential (primary) hypertension; E87.1 Hypo-osmolality and hyponatremia; E78.5 Hyperlipidemia, unspecified; F41.9 Anxiety disorder, unspecified; R63.4 Abnormal weight loss; M79.1 Myalgia; E78.00 Pure hypercholesterolemia, unspecified; M54.9 Dorsalgia, unspecified; G89.29 Other chronic pain; F12.90 Cannabis use, unspecified, uncomplicated; T40.2X5A Adverse effect of other opioids, initial encounter; I25.10 Atherosclerotic heart disease of native coronary artery without angina pectoris; G25.81 Restless legs syndrome; K21.9 Gastro-esophageal reflux disease without esophagitis; M94.1 Relapsing polychondritis; Z79.82 Long term (current) use of aspirin; Z90.49 Acquired absence of other specified parts of digestive tract; I25.2 Old myocardial infarction; Z95.5 Presence of coronary angioplasty implant and graft; Z79.899 Other long term (current) drug therapy; Z79.84 Long term (current) use of oral hypoglycemic drugs; Z87.891 Personal history of nicotine dependence; Z68.27 Body mass index [BMI] 27.0-27.9, adult; Y92.89 Other specified places as the place of occurrence of the external cause; Y93.89 Activity, other specified; Y99.8 Other external cause status
CPT/HCPCS: 36415; 51701; 71010; 74177; 80047; 80076; 81001; 82962; 83605; 83690; 85007; 85025; 87040; 96361; 96365; 96368; 96375; J0690; J2212; J2270; J2405; J2550; J7030; J7512; Q9967; 99285-25

== ENCOUNTER 2017-02-11 09:52 | Emergency (ER) | payer MEDICARE ==
[~2017-02-11] VITALS: Ht 162.6 cm; Wt 70.8 kg
[~2017-02-11 09:52] MED LIST changes: +ATOR40TA59 PO; +FERR-26 PO; +FOLI1TAB16 PO; +LUBI8CAP4 PO; +METH2.5T PO; +OMEG100021 PO; +ONDA8TAB9 PO; +PRED-220 PO; +PRED5DRO16 EACHEYE; +RANI300C PO
--- NOTE | 2017-02-11 10:24 | PHYS DOC ---
Past Medical History Past Medical History: Angina, CAD, Diabetes-Type II, GERD, High Cholesterol, Hypertension, Hepatitis, [place] Additional Past Medical Histor: replasing poly chondritis, Hepitits B Past Surgical History: Appendectomy, Cholecystectomy Additional Past Surgical Histo: RT ARM SURGERY,spinal stimulator placement, back surgery, stent Alcohol Use: None Drug Use: None Adult General Chief Complaint Chief Complaint: MECHANICAL FALL HPI HPI Patient is a 56 year old female who presents with pain after a fall. Patient states that she was standing on a chair when she lost her footing and fell and struck her head. She is unsure if she had loss of consciousness. Patient takes Plavix and has a goose egg on her head. She is complaining of head pain, chest pain. The chest pain started directly after the fall. It's located on the left side of the chest, nonradiating. Patient stated she had to crawl to the door to open it for her father who she had called after the fall. Patient normally takes morphine 30 mg 3 times per day. She did take this this morning as usual. She is requesting additional pain medication at this time. Review of Systems Review of Systems Constitutional: Denies fever or chills [] Eyes: Denies change in visual acuity, redness, or eye pain [] HENT: Denies nasal congestion or sore throat [] Respiratory: Denies cough or shortness of breath [] Cardiovascular: Pain left-sided chest, worse with movement GI: Denies abdominal pain, nausea, vomiting, bloody stools or diarrhea [] : Denies dysuria or hematuria [] Musculoskeletal: Denies back pain or joint pain [] Integument: Denies rash or skin lesions [] Neurologic: Denies focal weakness or sensory changes [] Current Medications Current Medications Current Medications Medications (Trade) Dose Ordered Sig/Anthony Start Time Stop Time Status Last Admin Dose Admin Cyclobenzaprine HCl (Flexeril) 10 mg 1X ONCE 02/11/17 13:30 02/11/17 13:31 DC Fentanyl Citrate (Fentanyl 2ml Vial) 50 mcg 1X ONCE 02/11/17 12:00 02/11/17 12:01 DC 02/11/17 11:52 50 MCG Info (Do NOT chart on this entry -- for MONITORING) 1 each PRN DAILY PRN 02/11/17 12:30 02/11/17 14:13 DC Iohexol (Omnipaque 300 Mg/ml) 75 ml 1X ONCE 02/11/17 12:30 02/11/17 12:31 DC Morphine Sulfate 4 mg 1X ONCE 02/11/17 13:30 02/11/17 13:31 DC 02/11/17 13:30 4 MG Allergies Allergies Allergies Coded Allergies Type Severity Reaction Last Updated Verified No Known Drug Allergies 06/22/13 No Physical Exam Physical Exam Constitutional: Well developed, well nourished, no acute distress, non-toxic appearance. Laying with her eyes closed and keeps them closed as she talks HENT: Normocephalic, golf ball hematoma right posterior proximal area parietal region l external ears normal, oropharynx moist, no oral exudates, nose normal. [] Eyes: PERRLA, EOMI, conjunctiva normal, no discharge. [] Neck: Normal range of motion, no tenderness, supple, no stridor. [] Cardiovascular:Heart rate regular with regular rhythm, no murmur [] Lungs & Thorax: Bilateral breath sounds clear to auscultation , no wheeze or crackles, ttp along left anterior chest, no crepitus, no external signs of trauma Abdomen: Bowel sounds normal, soft, no tenderness, no masses, no pulsatile masses. [] Skin: Warm, dry, no erythema, no rash. [] Back: No midline stepoffs or tenderness, no CVA tenderness. [] Extremities: No tenderness, no cyanosis, no clubbing, ROM intact, no edema. [] Neurologic: Alert and oriented X 3, normal motor function, normal sensory function, no focal deficits noted. [] Current Patient Data Vital Signs Vital Signs Date Time Temp Pulse Resp B/P (MAP) Pulse Ox O2 Delivery O2 Flow Rate FiO2 02/11/17 13:43 95 16 98 02/11/17 10:41 Room Air 02/11/17 10: 98.5 148/72 (97) 98.5 Lab Values Laboratory Tests Test 02/11/17 10:25 02/11/17 10:45 White Blood Count 15.5 x10^3/uL (4.0-11.0) H Red Blood Count 4.04 x10^6/uL (3.50-5.40) Hemoglobin 12.7 g/dL (12.0-15.5) Hematocrit 38.6 % (36.0-47.0) Mean Corpuscular Volume 96 fL (79-100) Mean Corpuscular Hemoglobin 32 pg (25-35) Mean Corpuscular Hemoglobin Concent 33 g/dL (31-37) Red Cell Distribution Width 17.6 % (11.5-14.5) H Platelet Count 354 x10^3/uL (140-400) Neutrophils (%) (Auto) 76 % (31-73) H Lymphocytes (%) (Auto) 18 % (24-48) L Monocytes (%) (Auto) 5 % (0-9) Eosinophils (%) (Auto) 1 % (0-3) Basophils (%) (Auto) 1 % (0-3) Neutrophils # (Auto) 11.7 x10^3uL (1.8-7.7) H Lymphocytes # (Auto) 2.8 x10^3/uL (1.0-4.8) Monocytes # (Auto) 0.8 x10^3/uL (0.0-1.1) Eosinophils # (Auto) 0.1 x10^3/uL (0.0-0.7) Basophils # (Auto) 0.1 x10^3/uL (0.0-0.2) Sodium Level 139 mmol/L (136-145) Potassium Level 4.8 mmol/L (3.5-5.1) Chloride Level 104 mmol/L (98-107) Carbon Dioxide Level 28 mmol/L (21-32) Anion Gap 7 (6-14) Blood Urea Nitrogen 15 mg/dL (7-20) Creatinine 1.0 mg/dL (0.6-1.0) Estimated GFR (Cockcroft-Gault) 57.4 Glucose Level 122 mg/dL (70-99) H Calcium Level 9.4 mg/dL (8.5-10.1) Troponin I Quantitative < 0.017 ng/mL (0.000-0.055) Laboratory Tests 02/11/17 10:25 Laboratory Tests 02/11/17 10:45 EKG EKG 105 bpm, sinus tach, normal axis, normal intervals, no ST elevation or depression, nonischemic T waves, interpreted by me [employer] W[employer] Tester shows 102 bpm, sinus, no dysrhythmia appreciated, interpreted by me[] sPO2 96% on room air with good waveform, interpreted by nh Radiology/Procedures Radiology/Procedures CT chest: IMPRESSION: 1. 1.5 x 1.8 cm area of groundglass opacification in the peripheral right middle lobe along the minor fissure, new from 2013 CT chest. Following Fleischner criteria for subsolid pulmonary nodules, recommend follow-up CT chest in 3 months. 2. No other evidence of acute intrathoracic abnormality. [CT head: IMPRESSION: 1. No acute intracranial abnormality. 2. Right high parietal scalp small hematoma. No underlying osseous abnormality. Course & Med Decision Making Course & Med Decision Making Pertinent Labs and Imaging studies reviewed. (See chart for details) Labs, EKG ordered, 50 g IV fentanyl given, CT head and chest ordered She received additional fentanyl for uncontrolled pain. Patient was delayed going to CT due to delay in labs. Patient returned from CT and morphine was given. Findings of CTs were reviewed with pt, expressed to pt she need to have repeat CT performed in 3 months for nodule. She has pain and muscle relaxers meds at home. f/u with PCP, Dr. Loepz, I did consult her by phone who agrees with plan. Dragon Disclaimer Dragon Disclaimer This electronic medical record was generated, in whole or in part, using a voice recognition dictation system. Departure Departure Impression: Primary Impression: Fall Additional Impressions: Chest pain Pulmonary nodule Disposition: HOME, SELF-CARE Condition: STABLE Referrals: RIVKA LOPEZ MD (PCP) Problem Qualifiers JAKOB VICTORIA MD Feb 11, 2017 10:24
--- NOTE | 2017-02-11 10:27 | EKG ---
[facility] [address] [place] [address] Test Date: 2017-02-11 Test Time: 10:15:44 Pat Name: NUHA STANTON Department: Room: Gender: F Building Contractor: : [id number] Requested By: JAKOB VICTORIA Order Number: [id number] Reading MD: Measurements Intervals [place] Rate: 105 P: 8 NM: 188 QRS: 26 QRSD: 80 T: 39 QT: 328 QTc: 437 Interpretive Statements SINUS TACHYCARDIA QRS(T) CONTOUR ABNORMALITY CONSIDER ANTEROLATERAL MYOCARDIAL DAMAGE POSSIBLY ABNORMAL ECG RI6.01 No previous ECG available for comparison
[2017-02-11] MEDS ORDERED: fentaNYL PF VIAL 100 MCG/2 ML VIAL IV ONE ×2 (10:30→12:00)
[2017-02-11 10:49] LABS: BASO # 0.1 x10^3/uL (0.0-0.2); BASO % 1 % (0-3); EOS % 1 % (0-3); HEMATOCRIT 38.6 % (36.0-47.0); HEMOGLOBIN 12.7 g/dL (12.0-15.5); LYMPH # 2.8 x10^3/uL (1.0-4.8); LYMPH % 18 % (24-48); MEAN CORPUSCULAR HEMOGLOBIN 32 pg (25-35); MEAN CORPUSCULAR HGB CONC 33 g/dL (31-37); MEAN CORPUSCULAR VOLUME 96 fL (79-100); MONO % 5 % (0-9); NEUT % 76 % (31-73); PLATELET COUNT 354 x10^3/uL (140-400); RED BLOOD COUNT 4.04 x10^6/uL (3.50-5.40); RED CELL DISTRIBUTION WIDTH 17.6 % (11.5-14.5); WHITE BLOOD COUNT 15.5 x10^3/uL (4.0-11.0)
[2017-02-11 12:08] LABS: CALCIUM 9.4 mg/dL (8.5-10.1); GFR 57.4; POTASSIUM 4.8 mmol/L (3.5-5.1)
[2017-02-11] MEDS ORDERED: IOHEXOL 300 MG/ML 100ML VIAL. IV ONE (12:30)
[2017-02-11] MEDS ORDERED: CONTRAST GIVEN MC PRN (12:30)
--- NOTE | 2017-02-11 13:10 | RAD ---
CT HEAD WITHOUT CONTRAST History: fall, struck head, on plavix Comparison: CT head dated 06/01/2014. Procedure: Axial images are obtained of the head from the skull base through the vertex without IV contrast. Findings: Payan-white matter differentiation is preserved. Mild cerebral and cerebellar atrophy. The ventricles and sulci are normal for the patient's age.. No mass-effect, midline shift, hemorrhage or obvious acute infarction is identified. Basilar cisterns are patent. Right high parietal scalp small hematoma. Bone windows demonstrate no significant calvarial abnormality.The visualized paranasal sinuses appear clear. Mastoid air cells are well aerated. IMPRESSION: 1. No acute intracranial abnormality. 2. Right high parietal scalp small hematoma. No underlying osseous abnormality. PQRS Compliance Statement: One or more of the following individualized dose reduction techniques were utilized for this examination: 1. Automated exposure control 2. Adjustment of the mA and/or kV according to patient size 3. Use of iterative reconstruction technique
--- NOTE | 2017-02-11 13:26 | RAD ---
CT CHEST WITH IV CONTRAST History: fall on plavix Comparison: CT chest dated 04/02/2012. Technique: Helical CT of the chest was performed after the administration of intravenous contrast. Axial and coronal reconstructions were obtained. 60 mL of Omnipaque 350. Findings: The thyroid is symmetric. There is no axillary, mediastinal, or hilar adenopathy. Calcified mediastinal lymph nodes related to remote granulomatous disease. The thoracic aorta diameter is normal. Mild atherosclerosis of the thoracic aorta and its branches. The cardiac size is normal. Dense coronary artery calcifications. There is no pericardial effusion. The central airways are patent. Moderate centrilobular emphysema. Bilateral dependent atelectasis. 1.5 x 1.8 cm area of groundglass opacification in the peripheral right middle lobe along the minor fissure (image 24, series 2). Right middle lobe calcified granuloma. No pleural effusion is observed. There is no pneumothorax. Cholecystectomy. Fatty atrophy in the pancreas. The visualized upper abdomen is otherwise unremarkable. No acute osseous abnormality. There are mild degenerative changes of the thoracic spine. Neurostimulator device with leads terminating in the mid thoracic region. IMPRESSION: 1. 1.5 x 1.8 cm area of groundglass opacification in the peripheral right middle lobe along the minor fissure, new from 2013 CT chest. Following Fleischner criteria for subsolid pulmonary nodules, recommend follow-up CT chest in 3 months. 2. No other evidence of acute intrathoracic abnormality. PQRS Compliance Statement: One or more of the following individualized dose reduction techniques were utilized for this examination: 1. Automated exposure control 2. Adjustment of the mA and/or kV according to patient size 3. Use of iterative reconstruction technique
[2017-02-11] MEDS ORDERED: CYCLOBENZAPRINE 10 MG TABLET. PO ONE (13:30)
[2017-02-11] MEDS ORDERED: MORPHINE SULFATE 4 MG/ML DISP.SYRIN. IV ONE (13:30)
[2017-02-11 13:43] VITALS: BP 151/83
== END 2017-02-11 13:59 | disposition home or self-care (01) ==
LOC: ER 09:52
DX: S00.03XA Contusion of scalp, initial encounter (principal); R07.89 Other chest pain; R91.1 Solitary pulmonary nodule; I25.10 Atherosclerotic heart disease of native coronary artery without angina pectoris; E11.9 Type 2 diabetes mellitus without complications; E78.00 Pure hypercholesterolemia, unspecified; K21.9 Gastro-esophageal reflux disease without esophagitis; I10 Essential (primary) hypertension; I25.2 Old myocardial infarction; Z79.02 Long term (current) use of antithrombotics/antiplatelets; Z90.49 Acquired absence of other specified parts of digestive tract; W07.XXXA Fall from chair, initial encounter; Y93.89 Activity, other specified; Y92.89 Other specified places as the place of occurrence of the external cause; Y99.8 Other external cause status
CPT/HCPCS: 36415; 70450; 71260; 80048; 84484; 85025; 93005; 96374; 96375; 96376; 99285; J2270; J3010

== ENCOUNTER 2017-03-14 08:16 | Emergency (ER) | payer MEDICARE ==
[2017-03-14] MEDS: IV NORMAL SALINE 1000ML BAG 1,000 ML IV ×2 (09:28→10:47)
[2017-03-14] MEDS: ONDANSETRON PF 4 MG/2 ML VIAL. IV (09:31)
[2017-03-14] MEDS: KETOROLAC 30 MG/ML INJ. IV (09:32)
[2017-03-14 09:42] LABS: ADD MAN DIFF? NO
[2017-03-14 09:44] LABS: BASO # 0.1 x10^3/uL (0.0-0.2); BASO % 1 % (0-3); EOS # 0.1 x10^3/uL (0.0-0.7); EOS % 1 % (0-3); HEMATOCRIT 44.6 % (36.0-47.0); HEMOGLOBIN 14.7 g/dL (12.0-15.5); LYMPH # 2.3 x10^3/uL (1.0-4.8); LYMPH % 15 % (24-48); MEAN CORPUSCULAR HEMOGLOBIN 32 pg (25-35); MEAN CORPUSCULAR HGB CONC 33 g/dL (31-37); MEAN CORPUSCULAR VOLUME 97 fL (79-100); MONO # 0.7 x10^3/uL (0.0-1.1); MONO % 5 % (0-9); NEUT % 79 % (31-73); PLATELET COUNT 489 x10^3/uL (140-400); RED CELL DISTRIBUTION WIDTH 18.7 % (11.5-14.5); WHITE BLOOD COUNT 15.2 x10^3/uL (4.0-11.0)
[2017-03-14 09:54] LABS: ANION GAP 12 (6-14); BLOOD UREA NITROGEN 7 mg/dL (7-20); BUN/CREATININE RATIO 9 (6-20); CALCIUM 9.2 mg/dL (8.5-10.1); CARBON DIOXIDE 25 mmol/L (21-32); CHLORIDE 98 mmol/L (98-107); CREATININE 0.8 mg/dL (0.6-1.0); GFR 74.2; GLUCOSE 117 mg/dL (70-99); POTASSIUM 3.9 mmol/L (3.5-5.1); SODIUM 135 mmol/L (136-145)
[2017-03-14 10:00] LABS: ALBUMIN 3.5 g/dL (3.4-5.0); ALBUMIN/GLOBULIN RATIO 0.9 (1.0-1.7); ALK PHOS 121 U/L (46-116); ALT (SGPT) 31 U/L (14-59); AST (SGOT) 25 U/L (15-37); TOTAL BILIRUBIN 0.4 mg/dL (0.2-1.0); TOTAL PROTEIN 7.6 g/dL (6.4-8.2)
[2017-03-14 10:07] LABS: INFLUENZA A PATIENT NEGATIVE (NEGATIVE); INFLUENZA B PATIENT NEGATIVE (NEGATIVE); OBC FLU VALID
[2017-03-14] MEDS: IOHEXOL 300 MG/ML 100ML VIAL. IV (10:25)
[2017-03-14] MEDS ORDERED: CONTRAST GIVEN MC (10:30)
== END 2017-03-14 12:04 | disposition home or self-care (01) ==
LOC: ER 08:16
DX: K56.7 Ileus, unspecified (principal); R51 Headache; I25.10 Atherosclerotic heart disease of native coronary artery without angina pectoris; E11.9 Type 2 diabetes mellitus without complications; K21.9 Gastro-esophageal reflux disease without esophagitis; E78.00 Pure hypercholesterolemia, unspecified; I10 Essential (primary) hypertension; I25.2 Old myocardial infarction; Z86.19 Personal history of other infectious and parasitic diseases; Z90.49 Acquired absence of other specified parts of digestive tract; Z87.891 Personal history of nicotine dependence
CPT/HCPCS: 36415; 74022; 74177; 80053; 85025; 87804; 87804-59; 96361; 96374; 96375; 99285-25; J1885; J2405; J7030; Q9967

== ENCOUNTER 2017-12-22 06:39 | Outpatient (CLI) | payer MEDICARE ==
[~2017-12-22] VITALS: Ht 162.6 cm; Wt 58.1 kg
[2017-12-22] VITALS (9 sets, daily range): BP systolic 106–127; BP diastolic 69–79
[~2017-12-22 06:39] MED LIST changes: -CLON1TAB3 PO; +CLON1TAB4 PO; -FERR-26 PO; +FERR325T14 PO; +PROM50TA4 PO; +RANI150T21 PO; -RANI150T6 PO
[2017-12-22] MEDS ORDERED: IODIXANOL 320 MG/ML 100 ML VIAL. ONE (07:03)
[2017-12-22] MEDS ORDERED: LIDOCAINE 1% PF 30 ML VIAL. ONE (07:03)
[2017-12-22 07:18] LABS: HEMATOCRIT 39.2 % (36.0-47.0); HEMOGLOBIN 13.6 g/dL (12.0-15.5); RED BLOOD COUNT 3.75 x10^6/uL (3.50-5.40); RED CELL DISTRIBUTION WIDTH 22.9 % (11.5-14.5); WHITE BLOOD COUNT 8.6 x10^3/uL (4.0-11.0)
[2017-12-22 07:28] LABS: PROTHROMBIN TIME PATIENT 11.8 SEC (11.7-14.0)
[2017-12-22 07:31] LABS: CALCIUM 9.9 mg/dL (8.5-10.1); CREATININE 0.8 mg/dL (0.6-1.0); GFR 73.9
[2017-12-22 07:35] LABS: POTASSIUM 4.4 mmol/L (3.5-5.1)
[2017-12-22] MEDS ORDERED: VERAPAMIL 5 MG/2 ML VIAL. ONE (08:02)
[2017-12-22] MEDS ORDERED: MIDAZOLAM HCL/PF 2 MG/2 ML VIAL. ONE ×2 (08:02→08:25)
[2017-12-22] MEDS ORDERED: fentaNYL PF VIAL 100 MCG/2 ML VIAL ONE (08:02)
[2017-12-22] MEDS ORDERED: HEPARIN for IV BOLUS 10,000 UNIT/10 ML VIAL. ONE (08:02)
[2017-12-22] MEDS ORDERED: NITROGLYCERIN 200 MCG/2 ML SYRINGE FOR CATH/VASC LAB. ONE (08:03)
--- NOTE | 2017-12-22 08:14 | PDOC ---
MODERATE SEDATION ASSESSMENT RISKS/ALTERNATIVES Risks/Alternatives Risks and alternatives of this type of sedation and procedure discussed with: RISK/ALTERNATIVES: Patient H & P ON CHART H & P H & P on chart and reviewed for co-morbid conditions and appropriate labs. H&P ON CHART: Yes STATUS PREG STATUS ASSESSED: Yes MEDS/ALLERGIES REVIEWED Meds/Allergies Reviewed Medications and Allergies including time and route of recently administered narcotics and sedatives. MEDS/ALLERGIES REVIEWED: Yes ASA RATING ASA RATING: II AIRWAY ASSESSMENT Airway Assessment Airway patency, oral function limitations, presence of caps, crowns, dentures, partials, and ability to extend neck assessed. AIRWAY ASSESSMENT: Yes MALLAMPATI SCORE MALLAMPATI SCORE: II PRE-SEDATION ASSESSMENT PRE-SEDATION ASSESSMENT: Yes KARLEE FLOWERS MD Dec 22, 2017 08:14
[2017-12-22] MEDS ORDERED: LIDOCAINE 1% PF 30 ML VIAL. INJ ONE (09:00)
[2017-12-22] MEDS ORDERED: HEPARIN for IV BOLUS 10,000 UNIT/10 ML VIAL. IV ONE (09:00)
[2017-12-22] MEDS ORDERED: MIDAZOLAM HCL/PF 2 MG/2 ML VIAL. IV ONE (09:00)
[2017-12-22] MEDS ORDERED: fentaNYL PF VIAL 100 MCG/2 ML VIAL IV ONE (09:00)
[2017-12-22] MEDS ORDERED: IODIXANOL 320 MG/ML 100 ML VIAL. IART ONE (09:00)
[2017-12-22] MEDS ORDERED: IV NORMAL SALINE 1000ML BAG 1,000 ML IV SCH (09:22)
[2017-12-22] MEDS ORDERED: NITROGLYCERIN SUBLINGUAL 0.4 MG BOTTLE OF 25. SL PRN (09:30)
[2017-12-22] MEDS ORDERED: 0.9 % SODIUM CHLORIDE 10 ML DISP.SYRIN. IV PRN (09:30)
[2017-12-22] MEDS ORDERED: CONTRAST GIVEN. MC PRN (09:30)
--- NOTE | 2017-12-22 16:33 | CARD ---
MR#: [id number] Date of Study: 12/22/2017 Ordering Physician: KARLEE MENDOZA, Referring Physician: KARLEE MENDOZA, Tech: RT Trent (R) APPROVED REPORT Procedures Left heart catheterization Selective coronary angiogram IFR flow measurement of the LAD and first diagonal vessel. IFR flow measurement of the right coronary artery. The patient is a 57-year-old female with a history of previous stenting to the LAD, diagonal system a nd the right coronary artery. The patient reported progressively increasing chest discomfort. This wa s not significant affected by adjustment of medication. The pain has been progressive. In this settin g heart catheterization was recommended. Risks and benefits were discussed and the patient agreed to proceed. After informed consent was obtained the patient was brought to the heart catheterization lab. The are a of the right femoral artery was prepared in the usual manner with Betadine, sterile draping and loc al anesthetic. An 18-gauge needle was used to enter the right femoral artery, a wire placed and a 6 F rench sheath placed over the wire. A 6 Armenian JL4 diagnostic catheter was advanced to the ascending a hung and then the left system. Sequential injections in various views were obtained. A 6 Armenian Willi ams right diagnostic catheter was advanced to the ascending aorta and then the right coronary artery. Sequential injections in various views were obtained. A pigtail catheter was advanced to the ascendi ng aorta and used to cross into the left ventricle. Pressures and pullbacks were measured. No left ve ntriculogram was performed. A review of the patient's images showed borderline lesions in her previously placed stents to the LAD and diagonal system as well as a 40-45% restenosis of her right coronary artery sent. In the setting of progressive chest pain we performed IFR measurements of these lesions. 1000 units of heparin was administered. A 6 Armenian JL4 guide was used to engage the left coronary system. A flow reserve wire w as placed to the diagonal system with a measurement of 0.97. It was then placed to the LAD with a misbah surement of 0.97. This system was then removed. A 6 Armenian JR4 guide with side holes was used to enga ge the right coronary system. A flow resenve wire was used for a measurement of the RCA lesion which was also normal at 0.98. The system was removed from the patient. Injection of the sheath showed nor mal placement. The sheath was removed and sealed with an Angio-Seal product. The patient was moved to the holding area in stable condition. Findings. Hemodynamics. LV pressure of 116 / 2, 8 Aortic root pressure of 114/82. Coronaries. Left main. The left main was a normal-size vessel with no lesions. Left anterior descending. The LAD was a moderate size vessel. In its proximal to midportion at the ta keoff of the first diagonal there was a 40% lesion. IFR measurement of this lesion was 0.97. In the f irst diagonal lesion a previously placed stent appeared to have a 50% lesion. IFR measurement of this lesion was 0.97. Left circumflex. The left circumflex is a moderate size vessel. It had a mid 40% lesion. Right coronary artery. The right coronary was a moderate to moderately large vessel. It had a long mi d stent placement with the most significant lesion of 40-45%. IFR measurement of this lesion was 0.98 . <Conclusion> Moderate three-vessel coronary artery disease with no hemodynamically significant lesions on angiogra m and confirmed by IFR measurements. Patent stents in the LAD and first diagonal system. Patent stents in the right coronary artery. Signed by : Karlee Mendoza MD Electronically Approved : 12/22/2017 16:32:41
== END 2017-12-22 11:35 | disposition home or self-care (01) ==
LOC: CCL 06:39
PROVIDERS: ATTEND Internal Medicine Cardiovascular Disease
DX: I25.10 Atherosclerotic heart disease of native coronary artery without angina pectoris (principal); E78.00 Pure hypercholesterolemia, unspecified; I10 Essential (primary) hypertension; M19.90 Unspecified osteoarthritis, unspecified site; E11.9 Type 2 diabetes mellitus without complications; F17.210 Nicotine dependence, cigarettes, uncomplicated; Z72.89 Other problems related to lifestyle; Z79.899 Other long term (current) drug therapy; Z79.82 Long term (current) use of aspirin; Z95.5 Presence of coronary angioplasty implant and graft; Z90.49 Acquired absence of other specified parts of digestive tract
CPT/HCPCS: 36415; 80048; 85027; 85610; 93458; 93571; 93572; 99152; 99153; C1769; J1644; J2250; J3010; C1771; G0269

== ENCOUNTER 2018-06-27 18:08 | Emergency (ER) | payer MEDICARE ==
[~2018-06-27] VITALS: Ht 152.4 cm; Wt 58.1 kg
[~2018-06-27 18:08] MED LIST changes: +CLON1TAB11 PO; -CLON1TAB4 PO; +RANI-376 PO; -RANI150T21 PO
[2018-06-27 19:55] VITALS: BP 129/74
[2018-06-27] MEDS ORDERED: IV NORMAL SALINE 1000ML BAG 1,000 ML IV SCH (20:02)
--- NOTE | 2018-06-27 20:08 | PHYS DOC ---
Past Medical History Past Medical History: Angina, CAD, Diabetes-Type II, GERD, High Cholesterol, Hypertension, Hepatitis, [place] Additional Past Medical Histor: relapsing poly chondritis, Hepitits B Past Surgical History: Appendectomy, Cholecystectomy Additional Past Surgical Histo: RT ARM SURGERY,spinal stimulator placement, back surgery, stent X4 Alcohol Use: None Drug Use: None Adult General Chief Complaint Chief Complaint: CONSTIPATION HPI HPI Patient is a 58-year-old female who presents with complaint of constipation. Patient admits to being on morphine for chronic pain and states that she had purchased a bottle of Senokot and had taken some Senokot at home. She states that she still has not had a bowel movement. She does admit that while sitting on the toilet for 5 hours this afternoon, she was able to take some stool out with her hand. She states that she still has to go. She rates the pain in her abdomen and a 10 out of 10 and states that she has had an ileus before. She denies any fever, chest pain or shortness of breath. She states that nothing is improving her symptoms. Review of Systems Review of Systems Constitutional: Denies fever or chills [] Respiratory: Denies cough or shortness of breath [] Cardiovascular: No additional information not addressed in HPI [] GI: Positive abdominal pain and constipation[] : Denies dysuria or hematuria [] Neurologic: Denies headache, focal weakness or sensory changes [] All other systems were reviewed and found to be within normal limits, except as documented in this note. Current Medications Current Medications Current Medications Medications (Trade) Dose Ordered Sig/Anthony Start Time Stop Time Status Last Admin Dose Admin Methylnaltrexone Cromwell (Relistor) 12 mg 1X ONCE 06/27/18 20:15 06/27/18 20:16 DC 06/27/18 20:56 12 MG Ondansetron HCl (Zofran) 4 mg 1X ONCE 06/27/18 21:00 06/27/18 21:01 DC 06/27/18 20:55 4 MG Sodium Chloride 1,000 ml @ 1,000 mls/hr Q1H 06/27/18 20:02 06/27/18 21:01 DC 06/27/18 20:55 1,000 MLS/HR Allergies Allergies Allergies Coded Allergies Type Severity Reaction Last Updated Verified No Known Drug Allergies 06/22/13 No Physical Exam Physical Exam Constitutional: Well developed, well nourished, no acute distress, non-toxic appearance. [] HENT: Normocephalic, atraumatic, bilateral external ears normal, oropharynx moist, no oral exudates, nose normal. [] Eyes: PERRLA, EOMI, conjunctiva normal, no discharge. [] Neck: Normal range of motion, no tenderness, supple, no stridor. [] Cardiovascular: Regular rate and rhythm[] Lungs & Thorax: Bilateral breath sounds clear to auscultation [] Abdomen: Bowel sounds normal, soft, with diffuse reported tenderness. [] Skin: Warm, dry, no erythema, no rash. [] Extremities: No tenderness, no cyanosis, no clubbing, ROM intact, no edema. [] Neurologic: Alert and oriented X 3, no focal deficits noted. [] Current Patient Data Vital Signs Vital Signs Date Time Temp Pulse Resp B/P (MAP) Pulse Ox O2 Delivery O2 Flow Rate FiO2 06/27/18 19:55 97.5 108 20 129/74 (92) 98 Room Air 97.5 Lab Values Laboratory Tests Test 06/27/18 20:40 White Blood Count 8.3 x10^3/uL (4.0-11.0) Red Blood Count 3.01 x10^6/uL (3.50-5.40) L Hemoglobin 10.8 g/dL (12.0-15.5) L Hematocrit 32.0 % (36.0-47.0) L Mean Corpuscular Volume 106 fL (79-100) H Mean Corpuscular Hemoglobin 36 pg (25-35) H Mean Corpuscular Hemoglobin Concent 34 g/dL (31-37) Red Cell Distribution Width 16.5 % (11.5-14.5) H Platelet Count 268 x10^3/uL (140-400) Neutrophils (%) (Auto) 91 % (31-73) H Lymphocytes (%) (Auto) 7 % (24-48) L Monocytes (%) (Auto) 2 % (0-9) Eosinophils (%) (Auto) 0 % (0-3) Basophils (%) (Auto) 0 % (0-3) Neutrophils # (Auto) 7.6 x10^3uL (1.8-7.7) Lymphocytes # (Auto) 0.5 x10^3/uL (1.0-4.8) L Monocytes # (Auto) 0.2 x10^3/uL (0.0-1.1) Eosinophils # (Auto) 0.0 x10^3/uL (0.0-0.7) Basophils # (Auto) 0.0 x10^3/uL (0.0-0.2) Segmented Neutrophils % 80 % (35-66) H Band Neutrophils % 10 % (0-9) H Lymphocytes % 10 % (24-48) L Platelet Estimate Adequate (ADEQUATE) Poikilocytosis Mod Anisocytosis Slight Macrocytosis Slight Spherocytes Present Ange Cells Present Acanthocytes (Spur Cells) Present Schistocytes Few RBC Morphology Bizarre Forms Few Sodium Level 133 mmol/L (136-145) L Potassium Level 4.8 mmol/L (3.5-5.1) Chloride Level 98 mmol/L (98-107) Carbon Dioxide Level 27 mmol/L (21-32) Anion Gap 8 (6-14) Blood Urea Nitrogen 16 mg/dL (7-20) Creatinine 0.9 mg/dL (0.6-1.0) Estimated GFR (Cockcroft-Gault) 64.3 BUN/Creatinine Ratio 18 (6-20) Glucose Level 147 mg/dL (70-99) H Calcium Level 9.1 mg/dL (8.5-10.1) Total Bilirubin 0.5 mg/dL (0.2-1.0) Aspartate Amino Transferase (AST) 25 U/L (15-37) Alanine Aminotransferase (ALT) 28 U/L (14-59) Alkaline Phosphatase 116 U/L (46-116) Total Protein 6.7 g/dL (6.4-8.2) Albumin 2.9 g/dL (3.4-5.0) L Albumin/Globulin Ratio 0.8 (1.0-1.7) L Laboratory Tests 06/27/18 20:40 Laboratory Tests 06/27/18 20:40 EKG EKG [] Radiology/Procedures Radiology/Procedures [] Course & Med Decision Making Course & Med Decision Making Pertinent Labs and Imaging studies reviewed. (See chart for details) [] Dragon Disclaimer Dragon Disclaimer This electronic medical record was generated, in whole or in part, using a voice recognition dictation system. Departure Departure Impression: Primary Impression: Constipation due to opioid therapy Disposition: HOME, SELF-CARE Condition: STABLE Referrals: RIVKA HOFFMAN MD (PCP) Patient Instructions: Constipation, Adult HIRAM MONCADA Jr. DO Jun 27, 2018 20:08
[2018-06-27] MEDS ORDERED: METHYLNALTREXONE 12 MG/0.6 ML VIAL. SQ ONE (20:15)
[2018-06-27 20:47] LABS: BASO % 0 % (0-3); EOS % 0 % (0-3); HEMOGLOBIN 10.8 g/dL (12.0-15.5); LYMPH # 0.5 x10^3/uL (1.0-4.8); LYMPH % 7 % (24-48); MEAN CORPUSCULAR HEMOGLOBIN 36 pg (25-35); MEAN CORPUSCULAR HGB CONC 34 g/dL (31-37); MEAN CORPUSCULAR VOLUME 106 fL (79-100); MONO # 0.2 x10^3/uL (0.0-1.1); MONO % 2 % (0-9); NEUT # 7.6 x10^3uL (1.8-7.7); NEUT % 91 % (31-73); PLATELET COUNT 268 x10^3/uL (140-400); RED BLOOD COUNT 3.01 x10^6/uL (3.50-5.40); RED CELL DISTRIBUTION WIDTH 16.5 % (11.5-14.5); WHITE BLOOD COUNT 8.3 x10^3/uL (4.0-11.0)
[2018-06-27 20:54] LABS: CALCIUM 9.1 mg/dL (8.5-10.1); CREATININE 0.9 mg/dL (0.6-1.0); GFR 64.3; POTASSIUM 4.8 mmol/L (3.5-5.1)
[2018-06-27 20:59] LABS: ALBUMIN 2.9 g/dL (3.4-5.0); ALBUMIN/GLOBULIN RATIO 0.8 (1.0-1.7); TOTAL BILIRUBIN 0.5 mg/dL (0.2-1.0); TOTAL PROTEIN 6.7 g/dL (6.4-8.2)
[2018-06-27] MEDS ORDERED: ONDANSETRON PF 4 MG/2 ML VIAL. IV ONE (21:00)
[2018-06-27 21:02] LABS: % BANDS 10 % (0-9); % LYMPHS 10 % (24-48); % SEGS 80 % (35-66); ANISOCYTOSIS SLIGHT; PLT ESTIMATE ADEQUATE (ADEQUATE); POIKILOCYTOSIS MOD
[2018-06-27 21:03] LABS: ACANTHOCYTES PRESENT; BIZZARE CELLS FEW; BURR CELLS PRESENT; SCHISTOCYTES FEW
[2018-06-27 21:04] LABS: SPHEROCYTES PRESENT
--- NOTE | 2018-06-28 08:19 | RAD ---
ACUTE ABDOMEN SERIES History: ABDOMINAL PAIN, CONSTIPATION Comparison: March 14, 2017 Findings: Single view of the chest and single supine and single upright views of the abdomen are submitted. There is no infiltrate, pleural fluid, pneumothorax. There are again some granulomas near the lung bases bilaterally. Heart size is stable. There are again thoracic spinal stimulator leads. No free air is identified. There is retained stool greater of the right colon and near splenic flexure. There is moderate to severe degenerative disc disease and spondylosis at L4-5 and L5-S1. There has been cholecystectomy. No gas dilated small bowel is identified. Impression: 1. There is retained stool greater of the right colon and near splenic flexure. Electronically signed by: Reese Landaverde MD (06/28/2018 8:16 AM) [id number]
== END 2018-06-28 00:13 | disposition home or self-care (01) ==
LOC: ER 18:08
DX: K59.00 Constipation, unspecified (principal); K21.9 Gastro-esophageal reflux disease without esophagitis; I10 Essential (primary) hypertension; E78.00 Pure hypercholesterolemia, unspecified; E11.9 Type 2 diabetes mellitus without complications; I25.10 Atherosclerotic heart disease of native coronary artery without angina pectoris; I25.2 Old myocardial infarction; Z90.89 Acquired absence of other organs; Z90.49 Acquired absence of other specified parts of digestive tract
CPT/HCPCS: 36415; 74022; 80053; 85007; 85025; 96372; 96374; 99285; J2212; J2405; J7030

== ENCOUNTER → 2020-01-16 | Outpatient (CLI) | payer MEDICARE ==
[2019-05-11 12:44] VITALS: BP 131/92
[~2020-01-16] MED LIST changes: +CALC-627 PO; -CALC1TAB75 PO; -CLON1TAB11 PO; +CLONAZEPAM1 MG PO; -METF750T2 PO; +METF750T39 PO; +MORP-16 PO; -MORP30TA3 PO; +MULT-445 PO; -MULT1TAB52 PO; +NICO1PAT21 TP; -PANT40TA5 PO; +PANT40TA77 PO; +SIMV40TA18 PO; -SIMV40TA3 PO
--- NOTE | 2020-01-16 16:10 | CARD ---
MR#: [id number] Date of Study: 01/16/2020 Ordering Physician: KARLEE MENDOZA, Referring Physician: KARLEE MENDOZA, Tech: Di Morgan [facility] APPROVED REPORT EXAM: Two-dimensional and M-mode echocardiogram with Doppler and color Doppler. Other Information Quality : Fair INDICATION Cardiac Disease: CAD Lung Disease RISK FACTORS Smoking 2D DIMENSIONS RVDd2.0 (2.9-3.5cm)Left Atrium(2D)3.0 (1.6-4.0cm) IVSd0.7 (0.7-1.1cm)Aortic Root(2D)2.2 (2.0-3.7cm) LVDd3.9 (3.9-5.9cm)LVOT Diameter1.9 (1.8-2.4cm) PWd0.8 (0.7-1.1cm)LVDs2.8 (2.5-4.0cm) FS (%) 29.1 %SV37.1 ml LVEF(%)56.5 (>50%) Aortic Valve AoV Peak Rahat.128.1cm/sAoV VTI20.9cm AO Peak GR.6.6mmHgLVOT Peak Rahat.94.0cm/s AO Mean GR.3mmHgAVA (VMAX)2.01cm2 REVA (VTI)2.50cm2 Mitral Valve MV E Orazmvum56.6cm/sMV DECEL TBNP089sb MV A Qcrazcwf34.3cm/sE/A Ratio0.9 Pulmonary Vein S1 Tskuwhbm50.5cm/sD2 Oofrepjs28.1cm/s LEFT VENTRICLE The left ventricle is normal size. There is normal left ventricular wall thickness. The left ventricu lar systolic function is normal and the ejection fraction is within normal range. The Ejection Fracti on is 55-60%. There is normal LV segmental wall motion. Transmitral Doppler flow pattern is Grade I-a bnormal relaxation pattern. RIGHT VENTRICLE The right ventricle is normal size. The right ventricular systolic function is normal. ATRIA The left atrium size is normal. The right atrium size is normal. The interatrial septum is intact wit h no evidence for an atrial septal defect or patent foramen ovale as noted on 2-D or Doppler imaging. AORTIC VALVE The aortic valve is not well visualized but appears to be functioning normally by Doppler interrogati on. Doppler and Color Flow revealed no significant aortic regurgitation. There is no significant aort ic valvular stenosis. MITRAL VALVE The mitral valve is calcified but opens well. Mitral annular calcification is mild. There is no evide nce of mitral valve prolapse. There is no mitral valve stenosis. Doppler and Color-flow revealed mild mitral regurgitation. TRICUSPID VALVE The tricuspid valve is normal in structure and function. Doppler and Color Flow revealed no tricuspid valve regurgitation noted. There is no tricuspid valve stenosis. PULMONIC VALVE The pulmonic valve is not well visualized. Doppler and Color Flow revealed no pulmonic valvular regur gitation. There is no pulmonic valvular stenosis. GREAT VESSELS The aortic root is normal in size. The ascending aorta is not well seen. The IVC is normal in size an d collapses >50% with inspiration. PERICARDIAL EFFUSION There is no evidence of significant pericardial effusion. Critical Notification Critical Value: No <Conclusion> The left ventricle is normal size. The left ventricular systolic function is normal and the ejection fraction is within normal range. The Ejection Fraction is 55-60%. Doppler and Color Flow revealed no significant aortic regurgitation. There is no significant aortic valvular stenosis. Doppler and Color-flow revealed mild mitral regurgitation. Doppler and Color Flow revealed no tricuspid valve regurgitation noted. Signed by : Karlee Mendoza MD Electronically Approved : 01/16/2020 16:10:01
== END ==
LOC: ECHO 07:53
PROVIDERS: ATTEND Internal Medicine Cardiovascular Disease
DX: I34.0 Nonrheumatic mitral (valve) insufficiency (principal)
CPT/HCPCS: 93306

== ENCOUNTER 2020-11-11 15:42 | Emergency (ER) | payer MEDICARE ==
[~2020-11-11] VITALS: Ht 162.6 cm; Wt 59.0 kg
[~2020-11-11 15:42] MED LIST changes: -ISOS30TA4 PO; +ISOS30TA68 PO
[2020-11-11] MEDS ORDERED: FAMOTIDINE 20 MG/2 ML VIAL IVP ONE (17:45)
[2020-11-11] MEDS ORDERED: IV NORMAL SALINE 1000ML BAG 1,000 ML IV ONE (17:45)
[2020-11-11 18:23] LABS: BARBITURATES NEG (NEG); BENZODIAZEPINES POS (NEG); CANNABINOIDS POS (NEG); COCAINE NEG (NEG); METHADONE NEG (NEG); OPIATES POS (NEG); PHENCYCLIDINE NEG (NEG)
[2020-11-11 18:32] LABS: BILIRUBIN,URINE SMALL (NEG); CLARITY,URINE CLEAR; NITRITE,URINE NEGATIVE (NEG); PH,URINE 5.5 (<5.0-8.0); PROTEIN,URINE NEGATIVE (NEG-TRACE); UROBILINOGEN,URINE 0.2 mg/dL (0.2 mg/dL)
[2020-11-11 18:40] LABS: COLOR,URINE YELLOW
[2020-11-11 18:41] LABS: HYALINE CASTS, URINE MANY /HPF
[2020-11-11 18:42] LABS: AMPHETAMINE/METHAMPHETAMINE NEG (NEG)
[2020-11-11 18:43] LABS: BACTERIA,URINE 0 /HPF (0-FEW); RBC,URINE 0 /HPF (0-2)
[2020-11-11 19:03] LABS: FECAL OB PT NEGATIVE (NEG)
[2020-11-11 19:24] LABS: BASO % 0 % (0-3); EOS # 0.1 x10^3/uL (0.0-0.7); EOS % 1 % (0-3); HEMATOCRIT 36.2 % (36.0-47.0); HEMOGLOBIN 12.3 g/dL (12.0-15.5); LYMPH # 1.9 x10^3/uL (1.0-4.8); LYMPH % 14 % (24-48); MEAN CORPUSCULAR HEMOGLOBIN 30 pg (25-35); MEAN CORPUSCULAR HGB CONC 34 g/dL (31-37); MEAN CORPUSCULAR VOLUME 89 fL (79-100); MONO # 0.7 x10^3/uL (0.0-1.1); MONO % 5 % (0-9); NEUT # 10.7 x10^3/uL (1.8-7.7); NEUT % 80 % (31-73); PLATELET COUNT 329 x10^3/uL (140-400); RED BLOOD COUNT 4.06 x10^6/uL (3.50-5.40); RED CELL DISTRIBUTION WIDTH 14.9 % (11.5-14.5); WHITE BLOOD COUNT 13.3 x10^3/uL (4.0-11.0)
[2020-11-11 19:40] LABS: CALCIUM 9.9 mg/dL (8.5-10.1); CREATININE 1.4 mg/dL (0.6-1.0); GFR 38.4; POTASSIUM 3.6 mmol/L (3.5-5.1)
[2020-11-11 19:45] LABS: ALBUMIN 3.4 g/dL (3.4-5.0); ALBUMIN/GLOBULIN RATIO 0.8 (1.0-1.7); TOTAL BILIRUBIN 0.4 mg/dL (0.2-1.0); TOTAL PROTEIN 7.6 g/dL (6.4-8.2)
[2020-11-11] MEDS ORDERED: IOHEXOL 300 MG/ML 100ML VIAL. IV ONE (19:45)
--- NOTE | 2020-11-11 19:50 | RAD ---
EXAM: ULTRASOUND PELVIS INDICATION: Reason: vag bleeding / Spl. Instructions: / History: . COMPARISON: None available. TECHNIQUE: Transabdominal sonography was performed. FINDINGS: Uterus measures 5.1 x 3.5 x 2.7 cm. Ovaries are not seen. No free fluid identified in the pelvis. IMPRESSION: 1. Limited evaluation, patient declined transvaginal imaging. 2. Normal appearance of the uterus. Ovaries are not visualized. Electronically signed by: Cristian Hardwick MD (11/11/2020 7:48 PM) [facility]
--- NOTE | 2020-11-11 20:06 | RAD ---
Exam: CT of abdomen and pelvis without contrast INDICATION: Rectal bleeding, blood in urine TECHNIQUE: Sequential axial images through the abdomen and pelvis obtained without IV contrast. Sagit ninfa and coronal reformatted images were reconstructed from the axial data and reviewed. Exposure: One or more of the following in the visualized dose reduction techniques were utilized for this examination: 1. Automated exposure control 2. Adjustment of the MA and/or KV according to patient size 3. Use of iterative of reconstructive technique Comparisons: None FINDINGS: Heart size is normal. No pericardial effusion. Patchy airspace disease at lung bases bilaterally. No pleural effusion. Evaluation of solid organs is limited secondary to noncontrast technique. Liver, spleen, pancreas and adrenals are unremarkable. Gallbladder is absent. No perinephric inflammation or hydronephrosis. No renal or ureteral calculi are identified. Bladder is decompressed not well evaluated. Uterus is not enlarged. No abnormal adnexal mass. Large amount stool is noted in the colon. Appendix is not identified. No free intra-abdominal air or fluid. No obstruction. Abdominal aorta has a normal course and caliber. Abdominal vasculature is patent. No enlarged intra-abdominal lymph nodes are identified. No suspicious osseous lesions or acute fractures. IMPRESSION: 1. Large amount stool in the colon, correlate for constipation. 2. Patchy airspace right lung base may be infectious or inflammatory in etiology. Electronically signed by: Cristian Hardwick MD (11/11/2020 8:03 PM) [facility]
--- NOTE | 2020-11-11 20:29 | PHYS DOC ---
Past Medical History Past Medical History: Angina, CAD, Diabetes-Type II, GERD, High Cholesterol, Hypertension, Hepatitis, [place] Additional Past Medical Histor: relapsing poly chondritis, Hepitits B, chronic headaches Past Surgical History: Appendectomy, Cholecystectomy, Other Additional Past Surgical Histo: RT ARM SURGERY,spinal stimulator placement,back surgery, stent X4. Smoking Status: Current Every Day Smoker Additional Information: 03/16 ppd Alcohol Use: Sober Additional Information: sober x 11 years Drug Use: None General Adult EDM: Chief Complaint: RECTAL BLEED HPI: HPI: Patient is a 60-year-old female with a history of diabetes type 2, hypertension, high cholesterol, TN, hypothyroidism among other illnesses who presents to the ED today with multiple complaints. Patient is complaining of nausea, vomiting, diarrhea, symptoms for 2 to 3 days. She states today she was taking a bath and noted blood in the bathtub, she believes the blood was coming from her vagina, urethra and rectum. She is very convinced all this areas were bleeding. She is not sexually active. She states she is on Plavix. She appears "high" and states she is on morphine for chronic back pain, she also states she takes prescription benzodiazepines for anxiety and is supposed to take Linzess for constipation. Review of Systems: Review of Systems: Constitutional: Denies fever or chills. [] Eyes: Denies change in visual acuity. [] HENT: Denies nasal congestion or sore throat. [] Respiratory: Denies cough or shortness of breath. [] Cardiovascular: Denies chest pain or edema. [] GI: Reports nausea, vomiting, diarrhea, rectal bleeding, vaginal bleeding, urethral bleeding denies abdominal pain : Denies dysuria. [] Musculoskeletal: Denies back pain or joint pain. [] Integument: Denies rash. [] Neurologic: Denies headache, focal weakness or sensory changes. [] Psychiatric: Denies depression or anxiety. [] Heart Score: C/O Chest Pain: N/A Risk Factors: Risk Factors: DM, Current or recent (<one month) smoker, HTN, HLP, family history of CAD, obesity. Risk Scores: Score 0 - 3: 2.5% MACE over next 6 weeks - Discharge Home Score 4 - 6: 20.3% MACE over next 6 weeks - Admit for Clinical Observation Score 7 - 10: 72.7% MACE over next 6 weeks - Early Invasive Strategies Current Medications: Current Medications Medications (Trade) Dose Ordered Sig/Anthony Start Time Stop Time Status Last Admin Dose Admin Famotidine (Pepcid Vial) 20 mg 1X ONCE 11/11/20 17:45 11/11/20 17:49 DC 11/11/20 19:14 20 MG Iohexol (Omnipaque 300 Mg/ml) 75 ml 1X ONCE 11/11/20 19:45 11/11/20 19:46 DC Sodium Chloride 1,000 ml @ 1,000 mls/hr 1X ONCE 11/11/20 17:45 11/11/20 18:44 DC 11/11/20 19:13 1,000 MLS/HR Allergies: Allergies: Allergies Coded Allergies Type Severity Reaction Last Updated Verified No Known Drug Allergies 11/11/20 No Physical Exam: PE: Constitutional: Well developed, well nourished, no acute distress, non-toxic appearance. [] HENT: Normocephalic, atraumatic, bilateral external ears normal, oropharynx moist, no oral exudates, nose normal. [] Eyes: PERRLA, EOMI, conjunctiva normal, no discharge. [] Neck: Normal range of motion, no tenderness, supple, no stridor. [] Cardiovascular:Heart rate regular rhythm, no murmur [] Lungs & Thorax: Bilateral breath sounds clear to auscultation [] Abdomen: Bowel sounds normal, soft, no tenderness, no masses, no pulsatile masses. [] Pelvic exam was attempted-patient refused Rectal exam-external hemorrhoids noted nonthrombosed, no internal hemorrhoids, no active bleeding Urethra was examined exteriorly, no bleeding noted Skin: Warm, dry, no erythema, no rash. [] Back: No tenderness, no CVA tenderness. [] Extremities: No tenderness, no cyanosis, no clubbing, ROM intact, no edema. [] Neurologic: Alert and oriented X 3, normal motor function, normal sensory function, no focal deficits noted. [] Psychologic: Flat affect, patient appears very "high" Current Patient Data: Labs: Laboratory Tests Test 11/11/20 17:30 11/11/20 17:40 11/11/20 18:27 11/11/20 18:45 Stool Occult Blood Negative (NEG) Urine Collection Type U cath Urine Color Yellow Urine Clarity Clear Urine pH 5.5 (<5.0-8.0) Urine Specific Cowley 1.020 (1.000-1.030) Urine Protein Negative mg/dL (NEG-TRACE) Urine Glucose (UA) Negative mg/dL (NEG) Urine Ketones (Stick) Negative mg/dL (NEG) Urine Blood Negative (NEG) Urine Nitrite Negative (NEG) Urine Bilirubin Small (NEG) Urine Urobilinogen Dipstick 0.2 mg/dL (0.2 mg/dL) Urine Leukocyte Esterase Trace (NEG) Urine RBC 0 /HPF (0-2) Urine WBC 1-4 /HPF (0-4) Urine Bacteria 0 /HPF (0-FEW) Urine Hyaline Casts Many /HPF Urine Mucus Mod /LPF Urine Opiates Screen Pos (NEG) Urine Methadone Screen Neg (NEG) Urine Barbiturates Neg (NEG) Urine Phencyclidine Screen Neg (NEG) Urine Amphetamine/Methamphetamine Neg (NEG) Urine Benzodiazepines Screen Pos (NEG) Urine Cocaine Screen Neg (NEG) Urine Cannabinoids Screen Pos (NEG) Urine Ethyl Alcohol Neg (NEG) SARS-CoV-2 Antigen (Rapid) Negative (NEGATIVE) White Blood Count 13.3 x10^3/uL (4.0-11.0) H Red Blood Count 4.06 x10^6/uL (3.50-5.40) Hemoglobin 12.3 g/dL (12.0-15.5) Hematocrit 36.2 % (36.0-47.0) Mean Corpuscular Volume 89 fL (79-100) Mean Corpuscular Hemoglobin 30 pg (25-35) Mean Corpuscular Hemoglobin Concent 34 g/dL (31-37) Red Cell Distribution Width 14.9 % (11.5-14.5) H Platelet Count 329 x10^3/uL (140-400) Neutrophils (%) (Auto) 80 % (31-73) H Lymphocytes (%) (Auto) 14 % (24-48) L Monocytes (%) (Auto) 5 % (0-9) Eosinophils (%) (Auto) 1 % (0-3) Basophils (%) (Auto) 0 % (0-3) Neutrophils # (Auto) 10.7 x10^3/uL (1.8-7.7) H Lymphocytes # (Auto) 1.9 x10^3/uL (1.0-4.8) Monocytes # (Auto) 0.7 x10^3/uL (0.0-1.1) Eosinophils # (Auto) 0.1 x10^3/uL (0.0-0.7) Basophils # (Auto) 0.0 x10^3/uL (0.0-0.2) Sodium Level 133 mmol/L (136-145) L Potassium Level 3.6 mmol/L (3.5-5.1) Chloride Level 97 mmol/L (98-107) L Carbon Dioxide Level 30 mmol/L (21-32) Anion Gap 6 (6-14) Blood Urea Nitrogen 13 mg/dL (7-20) Creatinine 1.4 mg/dL (0.6-1.0) H Estimated GFR (Cockcroft-Gault) 38.4 BUN/Creatinine Ratio 9 (6-20) Glucose Level 93 mg/dL (70-99) Calcium Level 9.9 mg/dL (8.5-10.1) Total Bilirubin 0.4 mg/dL (0.2-1.0) Aspartate Amino Transferase (AST) 7 U/L (15-37) L Alanine Aminotransferase (ALT) 6 U/L (14-59) L Alkaline Phosphatase 98 U/L (46-116) Total Protein 7.6 g/dL (6.4-8.2) Albumin 3.4 g/dL (3.4-5.0) Albumin/Globulin Ratio 0.8 (1.0-1.7) L Lipase 39 U/L (73-393) L Ethyl Alcohol Level < 10 mg/dL (0-10) Laboratory Tests 11/11/20 18:45 Laboratory Tests 11/11/20 18:45 Vital Signs: Vital Signs Date Time Temp Pulse Resp B/P (MAP) Pulse Ox O2 Delivery O2 Flow Rate FiO2 11/11/20 19:11 93 20 139/106 (117) 97 Room Air 11/11/20 17:30 98.0 98.0 EKG: EKG: [] Radiology/Procedures: Radiology/Procedures: []PROCEDURE: PELVIS ULTRASOUND EXAM: ULTRASOUND PELVIS INDICATION: Reason: vag bleeding / Spl. Instructions: / History: . COMPARISON: None available. TECHNIQUE: Transabdominal sonography was performed. FINDINGS: Uterus measures 5.1 x 3.5 x 2.7 cm. Ovaries are not seen. No free fluid identified in the pelvis. IMPRESSION: 1. Limited evaluation, patient declined transvaginal imaging. 2. Normal appearance of the uterus. Ovaries are not visualized. Electronically signed by: Cristian Mccoy MD (11/11/2020 7:48 PM) [facility] [place] DICTATED and SIGNED BY: CRISTIAN MCCOY MD DATE: 11/11/[id number] 0 PROCEDURE: CT ABDOMEN PELVIS WO CONTRAST Exam: CT of abdomen and pelvis without contrast INDICATION: Rectal bleeding, blood in urine TECHNIQUE: Sequential axial images through the abdomen and pelvis obtained without IV contrast. Sagittal and coronal reformatted images were reconstructed from the axial data and reviewed. Exposure: One or more of the following in the visualized dose reduction techniques were utilized for this examination: 1. Automated exposure control 2. Adjustment of the MA and/or KV according to patient size 3. Use of iterative of reconstructive technique Comparisons: None FINDINGS: Heart size is normal. No pericardial effusion. Patchy airspace disease at lung bases bilaterally. No pleural effusion. Evaluation of solid organs is limited secondary to noncontrast technique. Liver, spleen, pancreas and adrenals are unremarkable. Gallbladder is absent. No perinephric inflammation or hydronephrosis. No renal or ureteral calculi are identified. Bladder is decompressed not well evaluated. Uterus is not enlarged. No abnormal adnexal mass. Large amount stool is noted in the colon. Appendix is not identified. No free intra-abdominal air or fluid. No obstruction. Abdominal aorta has a normal course and caliber. Abdominal vasculature is patent. No enlarged intra-abdominal lymph nodes are identified. No suspicious osseous lesions or acute fractures. IMPRESSION: 1. Large amount stool in the colon, correlate for constipation. 2. Patchy airspace right lung base may be infectious or inflammatory in etiology. Electronically signed by: Cristian Mccoy MD (11/11/2020 8:03 PM) [facility] DICTATED and SIGNED BY: CRISTIAN MCCOY MD DATE: 11/11/[id number] 0 Course & Med Decision Making: Course & Med Decision Making Pertinent Labs and Imaging studies reviewed. (See chart for details) This is a 60-year-old female patient presenting to the ED today complaining of nausea vomiting and diarrhea for 3 days, also complaining of rectal bleeding, vaginal bleeding, and blood from her urethra that she noted this afternoon while taking a bath. Urine analysis negative for blood, negative for infection. CBC with a WBC of 13.3, hemoglobin 12.3 with hematocrit of 36.2. CMP with creatinine of 1.4, BUN is normal. Patient was given IV fluids. Pelvic ultrasound was also obtained, exam was limited because patient refused transvaginal part of the test but there is no acute findings in the uterus UDS positive for opiates, marijuana and benzodiazepines. Rapid Covid test negative Hemoccult negative CT of the abdomen and pelvic was noted for constipation. Patient already has Linzess and she states she has other medicines she is supposed to take for c onstipation primarily induced by narcotics. We talked about other methods of managing constipation. I doubt her tearing that she had vaginal rectal as well as urethral bleeding. She has a PCP, recommended she follows up in the course of this week. Dragon Disclaimer: Dragon Disclaimer: This electronic medical record was generated, in whole or in part, using a voice recognition dictation system. Departure Departure Impression: Primary Impression: Constipation due to opioid therapy Additional Impressions: Nausea and vomiting Qualified Codes: R11.2 - Nausea with vomiting, unspecified Diarrhea Qualified Codes: R19.7 - Diarrhea, unspecified Disposition: 01 HOME / SELF CARE / HOMELESS Condition: STABLE Referrals: RIVKA HOFFMAN MD (PCP) Follow-up in the course of this week Patient Instructions: Constipation, Adult, Nausea and Vomiting, [id number] Additional Instructions: You were evaluated in the emergency room. Your urine was negative for blood. Your pelvic ultrasound uterus did not find anything acute findings. Your CT of the abdomen and pelvis was noted for constipation. Ensure you are taking your constipation medicines. Please follow-up with your primary care doctor in the course of this week or next week NERI CARBAJAL APRN Nov 11, 2020 20:29
[2020-11-11 21:00] VITALS: BP 152/68
--- NOTE | 2020-11-12 18:18 | NUR ---
IP: Attempted to contact pt concerning covid results. No answer, left a voicemail to return the call.
== END 2020-11-11 21:03 | disposition home or self-care (01) ==
LOC: ER 15:42
DX: K59.03 Drug induced constipation (principal); Z20.822 Contact with and (suspected) exposure to COVID-19; T40.2X5A Adverse effect of other opioids, initial encounter; R11.2 Nausea with vomiting, unspecified; R19.7 Diarrhea, unspecified; E11.9 Type 2 diabetes mellitus without complications; K21.9 Gastro-esophageal reflux disease without esophagitis; E78.00 Pure hypercholesterolemia, unspecified; I10 Essential (primary) hypertension; I25.10 Atherosclerotic heart disease of native coronary artery without angina pectoris; I25.2 Old myocardial infarction; G89.29 Other chronic pain; F17.200 Nicotine dependence, unspecified, uncomplicated; Z90.89 Acquired absence of other organs; Z90.49 Acquired absence of other specified parts of digestive tract; Y92.89 Other specified places as the place of occurrence of the external cause
CPT/HCPCS: 36415; 74176; 76856; 80053; 80307; 81001; 82274; 83690; 85025; 87086; 87426; 96361; 96374; 99285; G0480; J3490; J7030; U0003; U0005